=== PATIENT | male | born 2000 | race Caucasian/White ===

== ENCOUNTER 2022-04-02 04:08 | Outpatient (CLI) | payer OTHER, SELFPAY ==
[2022-04-02 16:12] LABS: Anion Gap 9.1 mmol/L (3-11); BUN 10 mg/dL (7-18); CO2 28.9 mmol/L (21.0-32.0); CREATININE 0.9 mg/dL (0.70-1.30); Calcium 9.5 mg/dL (8.5-10.1); Calculated LDL 148 mg/dL (<100); Chloride 101 mmol/L (98-107); Cholesterol 215 mg/dL (<200); Glucose 81 mg/dL (74-106); HDL Cholesterol 43 mg/dL (40-60); Potassium 3.7 mmol/L (3.5-5.1); Sodium 139 mmol/L (136-145); Triglyceride 124 mg/dL (<150)
[2022-04-02 16:37] LABS: Hemoglobin A1C 5.5 % (<5.7)
== END 2022-04-02 04:09 | disposition home or self-care (01) ==
PROVIDERS: PCP Nurse Practitioner Family; Visit Provider Nurse Practitioner Family
DX: I10 Essential (primary) hypertension (principal); E78.00 Pure hypercholesterolemia, unspecified; E66.01 Morbid (severe) obesity due to excess calories; Z68.54 Body mass index [BMI] pediatric, 95th percentile for age to less than 120% of the 95th percentile for age; Z13.1 Encounter for screening for diabetes mellitus
CPT/HCPCS: 80048; 80061; 83036

== ENCOUNTER 2022-07-24 02:20 | Outpatient (CLI) | payer OTHER, SELFPAY ==
--- NOTE | 2022-07-30 11:45 | PDOC.EEG ---
Neurology EEG EEG: [facility] Department of Neurology LONG-TERM AMBULATORY EEG REPORT Date of Recordin07/24/22 at 10:32:21 to 07/25/22 at 11:12:22 Interpreting Physician: Dr. Nichole Blackwell PCP/Referring Provider: Curtis Cates NP Reason for study: Raheem is a 22 year-old with stereotypical spells of left arm shaking and jerking. Current Medications: Home Medications Medication Instructions Recorded Confirmed Type Unknown [No Known Home Meds] 04/01/22 07/22/22 History METHODS: An 18-channel digitized electroencephalogram was recorded in the ambulatory setting with video. The 10/20 international system of electrode placement was used and bipolar and referential electrode montages were recorded. In addition to EEG the patient was monitored for EKG and by video. Activation procedures of photic stimulation and hyperventilation were performed if applicable. The duration of the recording was ~25 hours. DESCRIPTION OF EEG: Waking background activity: During maximal wakefulness a 9-Hz posterior background rhythm was present which was well-modulated, symmetrical, reactive to eye opening, and of moderate voltage. Faster frequencies were present in the bilateral anterior head regions. There was a normal anterior-posterior voltage gradient. Drowsy and sleeping background activity: During drowsiness, there was attenuation of the posterior dominant background rhythm and vertex waves. Normal stage II and III sleep was present with symmetrical sleep spindles, K-complexes, and vertex waves with slowing of the background rhythm to delta/theta frequencies. REM sleep manifested by rapid lateral eye movements and faster background rhythms was recorded. Arousal was unremarkable. Interictal abnormalities: none. Ictal findings: Event #1 on 07/25/22 at 13:45:32 -Clinical manifestations: Involuntary L arm movements x 30 seconds while waking -EEG findings: No abnormal or epileptiform activity. Event #2 on 07/25/22 at 13:59:03 -Clinical manifestations: Involuntary L arm movements x 5 seconds while waking -EEG findings: No abnormal or epileptiform activity. Activating Procedures: Photic stimulation was performed which produced no posterior driving response. Hyperventilation was performed with moderate effort and produced no physiological slowing of the background. EKG: EKG revealed normal sinus rhythm. INTERPRETATION: This long-term EEG is normal during the awake and sleep states as well as during the activation procedures. Two events captured with no associated EEG changes. PRIOR EEG: none CLINICAL CORRELATION: No focal regions of cerebral dysfunction or epileptiform activity was present. Two events captured with no associated EEG changes. Epilepsy remains a clinical diagnosis and a normal EEG does not rule out epilepsy. Clinical correlation is advised. Nichole Blackwell MD
== END 2022-07-24 02:21 | disposition home or self-care (01) ==
LOC: RT 02:20
PROVIDERS: PCP Nurse Practitioner Family; Visit Provider Psychiatry & Neurology Neurology
DX: R41.840 Attention and concentration deficit (principal); R56.9 Unspecified convulsions
CPT/HCPCS: 95714

== ENCOUNTER → 2022-08-19 01:28 | Outpatient (CLI) | payer OTHER, SELFPAY ==
--- NOTE | 2022-08-19 07:45 | DI.MRI_ITS ---
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 COMPARISON: No exams were available for comparison FINDINGS: The examination is limited due to patient motion artifact. VENTRICLES AND EXTRA AXIAL SPACES: Normal in size and morphology for the patient's age. MIDLINE SHIFT: None. CEREBRAL PARENCHYMA: No focus of restricted diffusion to suggest acute infarct. No space-occupying le navdeep identified. HEMORRHAGE: None. BRAINSTEM/CEREBELLUM: Normal. CALVARIUM: Normal. VISUALIZED PARANASAL SINUSES/MASTOIDS:Clear. NEZ PERCE OF MANJARREZ: Normal flow void. PITUITARY GLAND: Unremarkable. OTHER FINDINGS: None. IMPRESSION: Unremarkable MRI of the brain. DATA REPOSITORY:
== END ==
PROVIDERS: PCP Nurse Practitioner Family; Visit Provider Psychiatry & Neurology Neurology
DX: R40.4 Transient alteration of awareness (principal); G25.3 Myoclonus
CPT/HCPCS: 70551

== ENCOUNTER 2023-04-08 02:55 | Outpatient (CLI) | payer OTHER, SELFPAY ==
[2023-04-08 11:33] LABS: Hemoglobin A1C 5.3 % (<5.7)
[2023-04-08 11:42] LABS: Calculated LDL 123 mg/dL (<100); Cholesterol 201 mg/dL (<200); HDL Cholesterol 38 mg/dL (40-60); TSH (W/Ref FT4) 1.16 uIU/mL (0.36-3.74); Triglyceride 200 mg/dL (<150)
== END 2023-04-08 02:56 | disposition home or self-care (01) ==
PROVIDERS: PCP Nurse Practitioner Family; Visit Provider Nurse Practitioner Family
DX: E78.00 Pure hypercholesterolemia, unspecified (principal); E66.01 Morbid (severe) obesity due to excess calories; Z68.42 Body mass index [BMI] 45.0-49.9, adult
CPT/HCPCS: 36415; 80061; 83036; 84443

== ENCOUNTER 2024-04-21 01:55 | Outpatient (CLI) | payer OTHER, SELFPAY ==
--- OUTSIDE RECORDS SUMMARY | 2024-04-21 02:17 | XMS_ITS | Encounter Summary ---
Author Organization Formerly [facility] [place] [address] Care Team Providers Care Sharepoint Manager Name Role Phone Unknown Primary Care Provider Unavailabl e Encounter Details Date Type Department Care Team (Late st Contact Info) Description 08/19/2022 Ancillary Procedure [place] [id number] Curtis Harrington APRN [address] [place] [address] Social History Tobacco Use Types Packs/Day Years Used Date Smoking Tobacco: Never Smokeless Tobacco: Never Comments:Mom smokes inside. Sex and Gender Information Value Date Recorded Sex Assigned at Not on file Gender Identity Not on file Sexual Orientation Not on file documented as of this encounter Plan of Treatment Upcoming Encounters Date Type Department Care Team (Late st Contact Info) Description 07/12/2024 8:00 AM EDT [place] [address] Stacey Mendez [place]N [facility] [place] [address] 08/10/2024 9:00 AM EST TH Visit (TeleHealth) [place] [address] Stacey Mendez, [facility] [place] [address] 08/30/2024 9:00 AM EST TH Visit (TeleHealth) Neurology at [place] [phone] Stacey Mendez, [facility] [place] [address] 10/05/2024 9:00 AM EST TH Visit (TeleHealth) Neurology at [place] [phone] Stacey Mendez, [facility] [place] [address] 11/02/2024 2:30 PM EST TH Visit (TeleHealth) [place] [address] Stacey Mendez, [facility] [place] [address] 11/30/2024 3:00 PM EST TH Visit (TeleHealth) [place] [address] Stacey Mendez, [facility] [place] [address] 01/24/2025 8:00 AM EDT TH Visit (TeleHealth) [place] [address] Stacey Mendez [facility] [place] [address] 02/14/2025 8:00 AM EDT TH Visit (TeleHealth) [place] [address] Stacey Mendez, [facility] [place] [address] 03/15/2025 4:00 PM EDT TH Visit (TeleHealth) Neurology at [facility] [place] [address] Stacey Mendez, [facility] [place] [address] documented as of this encounter Procedures Procedure Name Priority Date/Time Associated Diagnosis Comments FILM LIBRARY STORAGE ONLY MR HEAD Routine 08/19/2022 12:00 AM EST documented in this encounter Results * Film Library- Storage Only MR Head (08/19/2022 12:00 AM EST) Narrative [facility] - 10/14/2022 4:58 PM EST This exam is auto-finalizing. It's purpose is for storage only. Curtis Harrington APRN IMG FILM LIBRARY O RDERABLES [place], [place] documented in this encounter Visit Diagnoses Not on filedocumented in this encounter Care Teams Sharepoint Manager Relationship Specialty Start Date End Date Unknown None PCP - General 02/10/22 10/15/22 documented as of this encounter
--- OUTSIDE RECORDS SUMMARY | 2024-04-21 02:17 | XMS_ITS | Encounter Summary ---
Author Organization [facility] [place] [address] Care Team Providers Care Brilliandeer Lopper Name Role Phone Curtis Harrington APRN Primary Care Provider +1- [phone] Encounter Details Date Type Department Care Team (Latest Contact Info) Description 12/16/2023 Travel Social History Tobacco Use Types Packs/Day Years [...] 8:00 AM EDT Office [place] [address] Stacey Mendez [employer] CONSULTANT [facility] [place] [address] 08/10/2024 9:00 AM EST TH Visit (TeleHealth) [place] [address] Stacey Mendez [employer]ANT [facility] [place] [address] 08/30/2024 9:00 AM EST TH Visit (TeleHealth) [place] [address] Stacey Mendez, [facility] [place] [address] 10/05/2024 9:00 AM EST TH Visit (TeleHealth) Neurology at [facility], [facility] Stacey Mendez, [facility] [place] [address] 11/02/2024 2:30 PM EST TH Visit (TeleHealth) Neurology at [place] [phone] Stacey Mendez, [facility] [place] [address] 11/30/2024 3:00 PM EST TH Visit (TeleHealth) [facility] [place] [address] Stacey Mendez, [facility] [place] [address] 01/24/2025 8:00 AM EDT TH Visit (TeleHealth) Neurology at [place] [phone] Stacey Mendez, [facility] [place] [address] 02/14/2025 8:00 AM EDT TH Visit (TeleHealth) [place] [address] Stacey Mendez [facility] [place] [address] 03/15/2025 4:00 PM EDT TH Visit (TeleHealth) Neurology at [facility] [place] [address] Stacey Mendez APRN [facility] [place] [address] documented as of this encounter Visit Diagnoses Not on filedocumented in this encounter Care Teams Brilliandeer Lopper Relationship Specialty Start Date End Date Curtis Harrington APRN [address] [place] [address] [address] [place] [address] PCP - General Family Medicine 10/16/22 documented as of this encounter
--- OUTSIDE RECORDS SUMMARY | 2024-04-21 02:17 | XMS_ITS | Encounter Summary ---
Author Organization [facility] Address [facility] [place] [address] Care Team Providers Care Customer Experience Leader Name Role Phone Mathew Quigley MD Primary Care Provider Reason for Visit * Reason Comments Skin Check * Consultation (Routine) - Closed Specialty Diagnoses / Procedures Referred By Yamilet greenwood Referred To Contact Dermatology Diagnoses Acanthosis nigricans Mathew Quigley MD [address] [place] [id number] Janine Zhang MD [facility] [address] [address] Referral ID Status Reason Start Date Expiration Date V isits Requested Visits Authorized [id number] Closed Consult, Test & Treat Connection Center 08/23/2017 08/23/2018 1 1 Encounter Details Date Type Department Care Team (Late st Contact Info) Description 10/28/2017 4:00 PM EST Office Visit Dermatology at [facility] [address] [place] [address] Yudith Stewart MD [facility] [address] [address] Acanthosis nigricans Social History Tobacco Use Types Packs/Day Years Used Date Smoking Tobacco: Passive Smo ke Exposure - Never Smoker Comments:Mom smokes inside. Sex and Gender Information Value Date Recorded Sex Assigned at Not on file Gender Identity Not on file Sexual Orientation Not on file documented as of this encounter Progress Notes * Yudith Stewart MD - 10/28/2017 4:00 PM EST DERMATOLOGY CONSULT CLINIC NOTE Date of service: 10/28/2017 Adis Escobedo : 2000 Provider: Yudith Stewart MD PROBLEM: dark patches of skin. HPI Mr. Escobedo is a 17 y.o. year old male, here with his mother, Stacey. New patient; referred by Mathew Quigley MD. Here today for dark patches on his neck, underarms, elbows and knees that he has had for about 5 years. He has applied lotion, washed with skin so soft, and scrubs nightly. His mom reports he has scrubbed until his skin is raw. He reports that when he sweats some of the color comes off and mom reports it sometimes bleaches his underwear. SKIN HX: Acanthosis nigricans MEDICAL HISTORY Denies h/o diabetes FAMILY HISTORY Paternal grandmother, uncle - diabetes ADR: Review of patient's allergies indicates no known allergies. MEDS: Current Outpatient Prescriptions on File Prior to Visit Medication Sig Dispense Refill ??? omeprazole (PRILOSEC) 20 mg capsule Take 20 mg by mouth daily. ??? loratadine (ALAVERT) 10 mg dissolvable tablet 10 MG = 1 Tablet(s), PO, Once daily ??? fluticasone (FLOVENT HFA) 110 mcg/Actuation inhaler 1 Puff(s), Inh, Twice daily ??? Levalbuterol Tartrate (XOPENEX HFA) 45 mcg/Actuation inhaler 1-2 puffs, Inh, Q4-6H PRN No current facility-administered medications on file prior to visit. ROS General: feeling well Skin: denies other skin complaints EXAM General: NAD, pleasant, cooperative Skin: A total body skin exam except for areas covered by underwear was performed. This includes examination of the skin of the face, ears, neck, chest, axillae, left and right upper and lower extremities, hands and feet, abdomen, and except the areas covered by underwear were not examined. Significant skin findings: A. Brown thick velvety plaques on neck, bilateral axillae, antecubital fossae, inguinal folds, popliteal fossae. ASSESSMENT/PLAN: A. Acanthosis Nigricans -Patient states recent workup for diabetes was negative. -No other family members with similar eruption. -Discussed etiology. -Recommended OTC AmLactin lotion - apply topically to affected areas every other day alternating with Tretinoin. -Rx: Tretinoin 0.05 cream - apply topically to affected areas every other day alternating with AmLactin. RTC 6-8 week acanthosis nigricans follow up. Appointment made upon exiting. I am documenting this encounter acting as the scribe for and in the presence of Dr. [place]. LIAN LEBLANC LPN I performed the above scribed service and agree with the accuracy of the documentation in this encounter. Yudith Stewart MD Section of Dermatology [facility] documented in this encounter Plan of Treatment Upcoming Encounters Date Type Department Care Team (Late st Contact Info) Description 07/12/2024 8:00 AM EDT [place] [address] Stacey Mendez [facility] [place] [address] 08/10/2024 9:00 AM EST TH Visit (TeleHealth) [place] [address] Stacey Mendez LEAF SUCKER OPERATOR [facility] [place] [address] 08/30/2024 9:00 AM EST TH Visit (TeleHealth) [place] [address] Stacey Mendez LEAF SUCKER OPERATOR [facility] [place] [address] 10/05/2024 9:00 AM EST TH Visit (TeleHealth) [place] [address] Stacey Mendez, [facility] [place] [address] 11/02/2024 2:30 PM EST TH Visit (TeleHealth) Neurology [place] [address] Stacey Mendez, [facility] [place] [address] 11/30/2024 3:00 PM EST TH Visit (TeleHealth) [place] [address] Stacey Mendez, [facility] [place] [address] 01/24/2025 8:00 AM EDT TH Visit (TeleHealth) [place] [address] Stacey Mendez, [facility] [place] [address] 02/14/2025 8:00 AM EDT TH Visit (TeleHealth) [place] [address] Stacey Mendez [facility] [place] [address] 03/15/2025 4:00 PM EDT TH Visit (TeleHealth) [place] [address] Stacey Mendez, [facility] [place] [address] documented as of this encounter Visit Diagnoses Diagnosis Acanthosis nigricans Acquired acanthosis nigricans documented in this encounter Care Teams Customer Experience Leader Relationship Specialty Start Date End Date Mathew Quigley MD [address] [place] [address] PCP - General 08/19/10 02/09/22 documented as of this encounter
--- OUTSIDE RECORDS SUMMARY | 2024-04-21 02:17 | XMS_ITS | Encounter Summary ---
Author Organization Formerly [facility] [place] [address] Care Team Providers Care Slot Editor Name Role Phone Curtis Harrington APRN Primary Care Provider +1- [phone] Encounter Details Date Type Department Care Team (Latest Contact Info) Description 01/14/2023 Travel Social History Tobacco Use Types Packs/Day [...] 8:00 AM EDT [place] [address] Stacey Mendez [employer]OR [facility] [place] [address] 08/10/2024 9:00 AM EST TH Visit (TeleHealth) [place] [address] Stacey Mendez INSPECT[employer]LOOR [facility] [place] [address] 08/30/2024 9:00 AM EST TH Visit (TeleHealth) [place] [address] Stacey Mendez, [facility] [place] [address] 10/05/2024 9:00 AM EST TH Visit (TeleHealth) Neurology at [facility], [facility] Stacey Mendez, [facility] [address] 11/02/2024 2:30 PM EST TH Visit (TeleHealth) Neurology at [place] [phone] Stacey Mendez, [facility] [place] [address] 11/30/2024 3:00 PM EST TH Visit (TeleHealth) [place]rology [place] [address] Stacey Mendez, [facility] [place] [address] 01/24/2025 8:00 AM EDT TH Visit (TeleHealth) Neurology at [place] [phone] Stacey Mendez, [facility] [place] [address] 02/14/2025 8:00 AM EDT TH Visit (TeleHealth) [place] [address] Stacey Mendez [facility] [place] [address] 03/15/2025 4:00 PM EDT TH Visit (TeleHealth) Neurology at [facility] [place] [address] Stacey Mendez APRN [facility] [place] [address] documented as of this encounter Visit Diagnoses Not on filedocumented in this encounter Care Teams Slot Editor Relationship Specialty Start Date End Date Curtis Harrington APRN [address] [place] [address] [address] [place] [address] PCP - General Family Medicine 10/16/22 documented as of this encounter
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
--- OUTSIDE RECORDS SUMMARY | 2024-04-21 02:17 | XMS_ITS | Encounter Summary ---
Author Organization [facility] Address [facility] [place] [address] Care Team Providers Care Lead Php Developer Name Role Phone LenCurtis MÓNICA Primary Care Provider +1- [phone] Encounter Details Date Type Department Care Team (Late st Contact Info) Description 04/17/2024 2:30 PM EDT TH Visit (TeleHealth) [place] [address] Gold Bowden MD [facility] [place] [address] Seizures Social History Tobacco Use Types Packs/Day Years Used Date Smoking Tobacco: Never Smokeless Tobacco: Never Comments:Mom quit Sex and Gender Information Value Date Recorded Sex Assigned at Not on file Gender Identity Not on file Sexual Orientation Not on file documented as of this encounter Progress Notes * Gold Bowden MD - 04/17/2024 2:30 PM EDT Images from the original note were not included. [facility] COMPREHENSIVE EPILEPSY PROGRAM CLINIC NOTE - FOLLOW-UP TELEHEALTH VISIT The patient gave permission for and was seen for today's appointment with a tele-health visit due to concerns for COVID-19 crisis. During this visit he was located in his home. Total length of telehealth visit: 20 minutes DATE: 04/17/2024 CHIEF COMPLAINT: left hemibody jerking/movements, can be right as well. Referring physician: Curtis Harrington, MÓNICA [address] [place] [address] Primary physician: Curtis Harrington, MÓNICA [address] [place] [address] PRESENT ILLNESS: Adis Escobedo is a 23 y.o. right handed male who presents with a chief complaint of left side jerking/movements. Outside records were requested and were reviewed in detail. Interval history (04/17/24): He met with Ginna Mendez in February and plans to start the CBT program. He needs to call to schedule follow up with her. Seizures only occur for about one second in a day. They used to be much longer, closer to 20 seconds. It just happens randomly he thinks. Really cannot pinpoint any stressors right now. Feels he's in a very good place. He feels his anxiety is managed with the sertraline. Migraines are rare. He hasn't had a migraine in a while. Not working or volunteering. He's looking for a job, looking for anything at this time. Barriers are, they want an experienced worker. Interval history (12/16/23): Migraines are much better [...] History: Raheem has seen Dr. Blackwell in [facility] a couple times now and is seeking a second opinion here at [facility]. 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 No past surgical history on file. Current Medications listed in chart: Medications 03/24/24 0908 Medication Sig Taking? sertraline (Zoloft) 25 mg tablet Take 1 tablet by mouth daily. metoprolol tartrate (Lopressor) 50 mg tablet Take 1 tablet by mouth 2 times daily. loratadine (ALAVERT) 10 mg dissolvable tablet Take by mouth as needed for Allergies. Allergies Allergen Reactions Adhesive Bandage Other reaction(s): [...] in the history of present illness. EXAMINATION: There were no vitals taken for this visit. Telehealth visit Assessment: Adis Escobedo is a 23 y.o. [...] in our FND clinic potentially for CBT whichhe is interested in. Update (04/17/24): Met with Ginna, no follows up set up yet, motivated to work on this. Will try to reach out and schedule. 2) For migraine, continue metoprolol 50mg (this [...] was scheduled for a return visit in [place] Epilepsy Classification: paroxysmal events (non-epileptic vs epileptic) Semiologic Seizure Classification: unclassified aura (headache) - > left vs bilateral extremity (face/arm/leg) tonic/jerky movements ILAE Seizure Classification: Unclassified Etiology: Unknown Seizure frequency: a couple times per week. Lasting 1 second. Related Condition: traumatic brain injury (TBI) Risks, [...] results to the patient/family/caregiver. Gold Bowden MD [facility] Epilepsy Program Department of Neurology documented in this encounter Plan of Treatment Upcoming Encounters Date Type Department Care Team (Late st Contact Info) Description 07/12/2024 8:00 AM EDT [place] [address] Stacey Mendez, [facility] [place] [address] 08/10/2024 9:00 AM EST TH Visit (TeleHealth) [place] [address] Stacey Mendez [facility] [place] [address] 08/30/2024 9:00 AM EST TH Visit (TeleHealth) [place] [address] Stacey Mendez [facility] [place] [address] 10/05/2024 9:00 AM EST TH Visit (TeleHealth) [place] [address] Stacey Mendez [facility] [place] [address] 11/02/2024 2:30 PM EST TH Visit (TeleHealth) [place] [address] Stacey Mendez [facility] [place] [address] 11/30/2024 3:00 PM EST TH Visit (TeleHealth) [place] [address] Stacey Mendez [facility] [place] [address] 01/24/2025 8:00 AM EDT TH Visit (TeleHealth) [place] [address] tSacey Mendez, WATER TREATMENT TECHNICIAN [facility] [place] [address] 02/14/2025 8:00 AM EDT TH Visit (TeleHealth) [place] [address] Stacey Mendez, WATER TREATMENT TECHNICIAN [facility] [place] [address] 03/15/2025 4:00 PM EDT TH Visit (TeleHealth) [place] [address] Stacey Mendez, [facility] [place] [address] documented as of this encounter Visit Diagnoses Diagnosis Seizures Other convulsions documented in this encounter Care Teams Lead Php Developer Relationship Specialty Start Date End Date Curtis Harrington APRN [address] [place] [address] PCP - General Family Medicine 10/16/22 documented as of this encounter
--- OUTSIDE RECORDS SUMMARY | 2024-04-21 02:17 | XMS_ITS | Encounter Summary ---
Author Organization [facility] [place] [address] Care Team Providers Care Electric Tape Slitter Name Role Phone Len Curtis Peralta APRN Primary Care Provider [phone]- [phone] Encounter Details Date Type Department Care Team (Late st Contact Info) Description 02/17/2023 [place] [address] Gold Bowden MD [facility] [place] [address] Migraine without aura and without status migrainosus, not intractable Social History Tobacco Use Types Packs/Day Years [...] 8:00 AM EDT Office [place] [address] Stacey Mendez [place]N [facility] [place] [address] 08/10/2024 9:00 AM EST TH Visit (TeleHealth) [place] [address] Stacey Mendez, [facility] [place] [address] 08/30/2024 9:00 AM EST TH Visit (TeleHealth) Neurology at [place] [id number] Stacey Mendez, [facility] [place] [address] 10/05/2024 9:00 AM EST TH Visit (TeleHealth) Neurology at [facility], [facility] Stacey Mendez, [facility] [place] [address] 11/02/2024 2:30 PM EST TH Visit (TeleHealth) [place] [address] Stacey Mendez, [facility] [place] [address] 11/30/2024 3:00 PM EST TH Visit (TeleHealth) [place] [address] Stacey Mendez, [facility] [place] [address] 01/24/2025 8:00 AM EDT TH Visit (TeleHealth) [place] [address] Stacey Mendez [facility] [place] [place] [address] 02/14/2025 8:00 AM EDT TH Visit (TeleHealth) [place] [address] Stacey Mendez, [facility] [place] [address] 03/15/2025 4:00 PM EDT TH Visit (TeleHealth) [place] [address] Stacey Mendez, [facility] [place] [address] documented as of this encounter Visit Diagnoses Diagnosis Migraine without aura and without status migrainosus, not intractable Migraine without aura, without mention of intractable migraine without mention of status migrainosus documented in this encounter Care Teams Electric Tape Slitter Relationship Specialty Start Date End Date Curtis Harrington APRN [address] [place] [address] PCP - General Family Medicine 10/16/22 documented as of this encounter
--- OUTSIDE RECORDS SUMMARY | 2024-04-21 02:17 | XMS_ITS | Encounter Summary ---
Author Organization [facility] Address [facility] [place] [address] Care Team Providers Care Courtesy Clerk Name Role Phone Mathew Quigley MD Primary Care Provider [phone] Encounter Details Date Type Department Care Team (Late st Contact Info) Description 12/20/2013 External Results Pediatrics at [address] [address] Haresh Concepcion MD [facility] [place] [address] Social History Tobacco Use Types Packs/Day Years [...] 8:00 AM EDT Office [place] [address] Stacey Mendez APRN [facility] [place] [address] 08/10/2024 9:00 AM EST TH Visit (TeleHealth) [place] [address] Stacey Mendez, [facility] [place] [address] 08/30/2024 9:00 AM EST TH Visit (TeleHealth) [place] [address] Stacey Mendez, [facility] [place] [address] 10/05/2024 9:00 AM EST TH Visit (TeleHealth) [place] [address] Stacey Mendez, [facility] [place] [address] 11/02/2024 2:30 PM EST TH Visit (TeleHealth) [place] [address] Stacey Mendez, [facility] [place] [address] 11/30/2024 3:00 PM EST TH Visit (TeleHealth) [place] [address] Stacey Mendez, [facility] [place] [address] 01/24/2025 8:00 AM EDT TH Visit (TeleHealth) [place] [address] Stacey Mendez, [facility] [place] [address] 02/14/2025 8:00 AM EDT TH Visit (TeleHealth) [place] [address] Stacey Mendez, MÓNICA [facility] [place] [address] 03/15/2025 4:00 PM EDT TH Visit (TeleHealth) Neurology at [facility] [place] [address] Stacey Mendez, M[facility] [place] [address] documented as of this encounter Procedures Procedure Name Priority Date/Time Associated Diagnosis Comments EXTERNAL LIPID LAB RESULTS PANEL Routine 10/16/2013 EXTERNAL LAB CBC CMP THYROID RESULTS PANEL Routine 10/16/2013 VITAMIN D, 25-HYDROXY Routine 10/16/2013 HEMOGLOBIN A1C Routine 10/16/2013 documented in this encounter Results * (ABNORMAL) VIT D Total Evaluation (10/16/2013) 25-OH Vit D Total 23.7(Exter nal Lab) Blood specimen (specimen) Historical Provider MD CHEMISTRY ORDERAB LES * (ABNORMAL) CBC / CMP / Thyroid External Results (10/16/2013) Sodium 142([facility]) 137 - 147 Potassium 4.6([facility]) 3.4 - 5.3 Chloride 106([facility]) 99 - 108 CO2 26(Externa l Lab) 20 - 28 BUN 10(Externa l Lab) Creatinine 0.7([facility]) Glucose Lvl 87(Externa l Lab) Calcium 9.5([facility]) 8.7 - 10.7 Total Protein 7.5([facility]) 6.4 - 8.2 Albumin 4.0([facility]) 3.5 - 5.0 Total Bilirubin 0.2([facility]) 0.1 - 1.4 Alk Phos 302([facility]) AST 22(Externa l Lab) 2 - 40 ALT 69(EXTERNA L/ABN) 3 - 30 TSH 1.47 Historical Provider POINT OF CARE EDE T ORDERABLES * (ABNORMAL) Lipid External Results (10/16/2013) Chol, Total 162([facility]) mg/dL HDL 41(Externa l Lab) md/dL LDL Cholesterol 103([facility]) mg/dL Triglycerides 109([facility]) mg/dL Historical Provider POINT OF CARE EDE T ORDERABLES * (ABNORMAL) Hemoglobin A1c (10/16/2013) Hemoglobin A1C 5.2([facility]) Blood specimen (specimen) Historical Provider CHEMISTRY ORDERAB LES documented in this encounter Visit Diagnoses Not on filedocumented in this encounter Care Teams Courtesy Clerk Relationship Specialty Start Date End Date Mathew Quigley MD [address] [place] [address] PCP - General 08/19/10 02/09/22 documented as of this encounter
--- OUTSIDE RECORDS SUMMARY | 2024-04-21 02:17 | XMS_ITS | Encounter Summary ---
Author Organization [facility] [place] [address] Care Team Providers Care Fast Food Assistant Restaurant Manager Name Role Phone Curtis Harrington APRN Primary Care Provider [phone]- [phone] Encounter Details Date Type Department Care Team (Latest Contact Info) Description 03/24/2024 Travel Social History Tobacco Use Types Packs/Day [...] 8:00 AM EDT [place] [address] Stacey [place] [address] 08/10/2024 9:00 AM EST TH Visit (TeleHealth) [place] [address] Stacey Mendez DERMATOLOGY NURSE PRACTITIONER [facility] [place] [address] 08/30/2024 9:00 AM EST TH Visit (TeleHealth) [place] [address] Stacey Mendez, [facility] [place] [address] 10/05/2024 9:00 AM EST TH Visit (TeleHealth) Neurology at [place] [address] Stacey Mendez, [place] [address] 11/02/2024 2:30 PM EST TH Visit (TeleHealth) Neurology at [facility], [facility] Stacey Mendez, [facility] [place] [address] 11/30/2024 3:00 PM EST TH Visit (TeleHealth) [place]rology [place] [address] Stacey Mendez, [facility] [place] [address] 01/24/2025 8:00 AM EDT TH Visit (TeleHealth) [place] [address] Stacey Mendez, [facility] [place] [address] 02/14/2025 8:00 AM EDT TH Visit (TeleHealth) [place]rology [place] [address] Stacey Mendez [place] [address] 03/15/2025 4:00 PM EDT TH Visit (TeleHealth) Neurology at [facility] [place] [place] [address] Stacey Mendez [place] [facility] [place] [address] documented as of this encounter Visit Diagnoses Not on filedocumented in this encounter Care Teams Fast Food Assistant Restaurant Manager Relationship Specialty Start Date End Date Curtis Harrington APRN [address] [place] [address] [address] [place] [address] PCP - General Family Medicine 10/16/22 documented as of this encounter
--- OUTSIDE RECORDS SUMMARY | 2024-04-21 02:17 | XMS_ITS | Encounter Summary ---
Author Organization [facility] Address [facility] [place] [address] Care Team Providers Care Technology Infusion Specialist Name Role Phone Crutis Harrington APRN Primary Care Provider [phone]- [phone] Reason for Visit * Consultation (Routine) - Closed Specialty Diagnoses / Procedures Referred By Yamilet greenwood Referred To Contact Neurology Diagnoses Nonspecific paroxysmal rosendall Nichole Blackwell MD [facility] [address] [place] [address] [facility] [address] [place] [address] Referral ID Status Reason Start Date Expiration Date V isits Requested Visits Authorized [id number] Closed Consult, Test & Treat PCP Updated and/or Approved 10/16/2022 10/16/2023 6 6 Encounter Details Date Type Department Care Team (Late st Contact Info) Description 06/17/2023 12:30 PM EDT Office [place] [address] Gold Bowden MD [facility] [place] [address] Migraine without aura and without status migrainosus, not intractable; Myoclonic jerking Social History Tobacco Use Types Packs/Day Years Used Date Smoking Tobacco: Never Smokeless Tobacco: Never Comments:Mom smokes inside. Sex and Gender Information Value Date Recorded Sex Assigned at Not on file Gender Identity Not on file Sexual Orientation Not on file documented as of this encounter Last Filed Vital Signs Vital Sign Reading Time Taken Comments Blood Pressure 120/73 06/17/2023 12:12 PM EDT Pulse 58 06/17/2023 12:12 PM EDT Temperature - - Respiratory Rate - - Oxygen Saturation 99% 06/17/2023 12: 12 PM EDT Inhaled Oxygen Concentration - - Weight 164.1 kg (361 lb 12.8 oz) 2022 12:12 PM EDT Height 186.7 cm (6' 1.5) 06/17/2023 12 :12 PM EDT Body Mass Index 47.09 06/17/2023 12:12 PM EDT documented in this encounter Progress Notes * Gold Bowden MD - 06/17/2023 12:30 PM EDT Images from the original note were not included. [facility] COMPREHENSIVE EPILEPSY PROGRAM CLINIC NOTE - INITIAL VISIT DATE: 06/17/2023 CHIEF COMPLAINT: left hemibody jerking/movements Referring physician: Curtis Harrington APRN [address] [place] [address] Primary physician: Curtis Harrington APRN [address] [place] [address] PRESENT ILLNESS: Adis Escobedo is a 23 y.o. right handed male who presents with a chief complaint of left side jerking/movements. Outside records were requested and were reviewed in detail. Interval history (06/17/23): At a [employer] at the end of April - dad [...] History: Raheem has seen Dr. Blackwell in [facility] a couple times now and is seeking a second opinion here at [facility]. Raheem and his mother report a 4-5 [...] 08/19/22 - Essentially normal with movement artifact. 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 No past surgical history on file. Current Medications listed in chart: Medications 06/17/23 1219 Medication Sig Taking? metoprolol tartrate (Lopressor) 50 mg tablet Take 50 mg by mouth 2 times daily. Yes urea (MACHO LO) 40 % Cream Apply topically to affected areas 2-3 x weekly. Patient not taking: Reported on 01/14/2023 tretinoin (RETIN-A) 0.05 % Cream Apply topically to affected areas every other night. Patient not taking: Reported on 01/11/2018 omeprazole (PRILOSEC) 20 mg capsule Take 20 mg by mouth daily. loratadine (ALAVERT) 10 mg dissolvable tablet 10 MG = 1 Tablet(s), PO, Once daily fluticasone (FLOVENT HFA) 110 mcg/Actuation inhaler Inhale [...] the history of present illness. EXAMINATION: BP 120/73 (BP Location (NBP): Right arm, Patient Position: Sitting, BP Cuff Sizes: Large Adult (32-43 cm)) Pulse 58 Ht 186.7 cm (6' 1.5) Wt (!) 164.1 kg (361 lb 12.8 oz) SpO2 99% BMI 47.09kg/m?? The patient is well appearing and in [...] sense. There was no dysmetria seen on [id number]. The gait was normal. Assessment: Adis Escobedo [...] triggered by stress/emotion and potentially other factors. 2) For migraine, we will start metoprolol 25mg twice a day. Please keep a headache/event diary for the next month. If you feel like it is helpful or not sure, we can increase to 50mg twice a day. Please watch out for breathing difficulties and dizziness/lightheadedness. 3) If events become more severe/frequent, we can pursue the video EEG admission here in the hospital to try to rule in or rule out seizures. The following tests were ordered: None Medication Regimen: Metoprolol 50mg BID, consider gabapentin if this is not working. Adis was scheduled for a return visit in 3 months. Epilepsy Classification: paroxysmal events (non-epileptic vs epileptic) Semiologic Seizure Classification: unclassified aura (headache) - > left vs bilateral extremity (face/arm/leg) tonic/jerky movements ILAE Seizure Classification: Unclassified Etiology: Unknown Seizure frequency: 5-6 per week Related Condition: traumatic brain injury (TBI) Risks, [...] results to the patient/family/caregiver. Gold Bowden MD [facility] Ep[facility]psy [facility] Department of Neurology documented in this encounter Plan of Treatment Upcoming Encounters Date Type Department Care Team (Late st Contact Info) Description 07/12/2024 8:00 AM EDT [place] [address] Stacey Mendez [facility] [place] [address] 08/10/2024 9:00 AM EST TH Visit (TeleHealth) [place] [address] Stacey Mendez MISSION SYSTEMS ENGINEER [facility] [place] [address] 08/30/2024 9:00 AM EST TH Visit (TeleHealth) [place] [address] Stacey Mendez MISSION SYSTEMS ENGINEER [facility] [place] [address] 10/05/2024 9:00 AM EST TH Visit (TeleHealth) [place] [address] Stacey Mendez, [facility] [place] [address] 11/02/2024 2:30 PM EST TH Visit (TeleHealth) Neurology at [facility] [address] Stacey Mendez, [facility] [place] [address] 11/30/2024 3:00 PM EST TH Visit (TeleHealth) Neurology at [facility] [place] [address] Stacey Mendez [facility] [place] [address] 01/24/2025 8:00 AM EDT TH Visit (TeleHealth) [place] [address] Stacey Mendez, [facility] [place] [address] 02/14/2025 8:00 AM EDT TH Visit (TeleHealth) [place] [address] Stacey Mendez [facility] [place] [address] 03/15/2025 4:00 PM EDT TH Visit (TeleHealth) [place] [address] Stacey Mendez, [facility] [place] [address] documented as of this encounter Visit Diagnoses Diagnosis Migraine without aura and without status migrainosus, not intractable Migraine without aura, without mention of intractable migraine without mention of status migrainosus Myoclonic jerking Myoclonus documented in this encounter Care Teams Technology Infusion Specialist Relationship Specialty Start Date End Date Curtis Harrington APRN [address] [place] [address] PCP - General Family Medicine 10/16/22 documented as of this encounter
--- OUTSIDE RECORDS SUMMARY | 2024-04-21 02:17 | XMS_ITS | Encounter Summary ---
[place] [address] Care Team Providers Care Aed Trainer Name Role Phone Curtis Harrington APRN Primary Care Provider [phone]- [phone] Reason for Referral * Consultation (Routine) - Closed Specialty Diagnoses / Procedures Referred By Yamilet t Referred To Contact Neurology Diagnoses Nonspecific paroxysmal spell Nichole Blackwell MD [facility] [address] [place] [address] [facility] [address] [place] [address] Referral ID Status Reason Start Date Expiration Date V isits Requested Visits Authorized [id number] Closed Consult, Test & Treat PCP Updated and/or Approved 10/16/2022 10/16/2023 6 6 Encounter Details Date Type Department Care Team (Late st Contact Info) Description 10/16/2022 Transcribe Orders eDH Incoming Referrals [phone] Nichole Blackwell MD [facility] [address] [place] [address] Nonspecific paroxysmal spell Social History Tobacco Use Types Packs/Day Years [...] 8:00 AM EDT [place] [address] Stacey Mendez, [facility] [place] [address] 08/10/2024 9:00 AM EST TH Visit (TeleHealth) [place] [address] Stacey Mendez, [facility] [place] [address] 08/30/2024 9:00 AM EST TH Visit (TeleHealth) [place] [address] Stacey Mendez, [facility] [place] [address] 10/05/2024 9:00 AM EST TH Visit (TeleHealth) [place] [address] Stacey Mendez, [place] [address] 11/02/2024 2:30 PM EST TH Visit (TeleHealth) [place] [address] Stacey Mendez [place] [address] 11/30/2024 3:00 PM EST TH Visit (TeleHealth) [place] [address] Stacey Mendez, [facility] [place] [address] 01/24/2025 8:00 AM EDT TH Visit (TeleHealth) [place] [address] Stacey Mendez, [facility] [place] [address] 02/14/2025 8:00 AM EDT TH Visit (TeleHealth) [place] [address] Stacey Mendez [place] [address] 03/15/2025 4:00 PM EDT TH Visit (TeleHealth) [place] [address] Stacey Mendez, [place] [address] Scheduled Referrals Name Type Priority Associated Diagnoses Orde r Schedule Referral to Neurology Outpatient Referral Routine Nonspecific Paroxysmal Spell Ordered: 10/16/2022 documented as of this encounter Visit Diagnoses Diagnosis Nonspecific paroxysmal spell documented in this encounter Care Teams Aed Trainer Relationship Specialty Start Date End Date Curtis Harrington, COST ACCOUNTING ANALYST [address] [place] [address] PCP - General Family Medicine 10/16/22 documented as of this encounter
--- OUTSIDE RECORDS SUMMARY | 2024-04-21 02:17 | XMS_ITS | Encounter Summary ---
Author Organization [facility] [place] [address] Care Team Providers Care Media Consultant Outside Sales Name Role Phone LenGinnaniru Peralta APRN Primary Care Provider [phone]- [phone] Reason for Visit * Reason Onset Date Comments Appointment 04/01/2023 Encounter Details Date Type Department Care Team (Late st Contact Info) Description 04/01/2023 Telephone [place] [address] Gold Bowden MD [facility] [place] [address] Appointment Social History Tobacco Use Types Packs/Day Years Used Date Smoking Tobacco: Never Smokeless Tobacco: Never Comments:Mom smokes inside. Sex and Gender Information Value Date Recorded Sex Assigned at Not on file Gender Identity Not on file Sexual Orientation Not on file documented as of this encounter Miscellaneous Notes * Telephone Encounter - Ritu Olson - 04/01/2023 12:20 PM EDT Reschedule past cancelled follow up appointment from 04/08/[address] Bowden to next available. Kindly warm transfer call to [facility] for sooner appts if needed. documented in this encounter Plan of Treatment Upcoming Encounters Date Type Department Care Team (Late st Contact Info) Description 07/12/2024 8:00 AM EDT [place] [address] Stacey Mendez, [place] [address] 08/10/2024 9:00 AM EST TH Visit (TeleHealth) [place] [address] Stacey Mendez [facility] [place] [address] 08/30/2024 9:00 AM EST TH Visit (TeleHealth) [place] [address] Stacey Mendez [facility] [place] [address] 10/05/2024 9:00 AM EST TH Visit (TeleHealth) [place] [address] Stacey Mendez [facility] [place] [address] 11/02/2024 2:30 PM EST TH Visit (TeleHealth) [place] [address] Stacey Mendez [facility] [place] [address] 11/30/2024 3:00 PM EST TH Visit (TeleHealth) [place] [address] Stacey Mendez, [facility] [place] [address] 01/24/2025 8:00 AM EDT TH Visit (TeleHealth) [place] [address] Stacey Mendez, [facility] [place] [address] 02/14/2025 8:00 AM EDT TH Visit (TeleHealth) [place] [address] Stacey Mendez, [facility] [place] [address] 03/15/2025 4:00 PM EDT TH Visit (TeleHealth) [place] [address] Stacey Mendez, [facility] [place] [address] documented as of this encounter Visit Diagnoses Not on filedocumented in this encounter Care Teams Media Consultant Outside Sales Relationship Specialty Start Date End Date Curtis Harrington APRN [address] [place] [address] PCP - General Family Medicine 10/16/22 documented as of this encounter
--- OUTSIDE RECORDS SUMMARY | 2024-04-21 02:17 | XMS_ITS | Encounter Summary ---
Author Organization [facility] Address [facility] [place] [address] Care Team Providers Care Furniture Mechanic Name Role Phone Len Curtis Peralta APRN Primary Care Provider [phone] Reason for Visit * Reason Onset Date Comments Appointment 06/14/2023 Encounter Details Date Type Department Care Team (Late st Contact Info) Description 06/14/2023 [place]phone [place] [address] Gold Bowden MD [facility] [place] [address] Appointment Social History Tobacco Use Types Packs/Day Years Used Date Smoking Tobacco: Never Smokeless Tobacco: Never Comments:Mom smokes inside. Sex and Gender Information Value Date Recorded Sex Assigned at Not on file Gender Identity Not on file Sexual Orientation Not on file documented as of this encounter Miscellaneous Notes * Telephone Encounter - Coral Kumar - 06/14/2023 3:13 PM EDT Patient is calling back and states that this is the second time the office has cancelled his appointment and he can not have the 06/17/23 cancelled as he needs to speak with the provider as soon as possible. Patient states that if the office cancels his appointment then he needs a call from the provider directly to speak to him. Please call to advise. * Telephone Encounter - Ritu Olson - 06/14/2023 2:32 PM EDT Reschedule cancelled 06/17/[address] Bowden to next available. documented in this encounter Plan of Treatment Upcoming Encounters Date Type Department Care Team (Late st Contact Info) Description 07/12/2024 8:00 AM EDT Office [place] [address] Stacey Mendez, [facility] [place] [address] 08/10/2024 9:00 AM EST TH Visit (TeleHealth) [place] [address] Stacey Mendez [facility] [place] [address] 08/30/2024 9:00 AM EST TH Visit (TeleHealth) [place] [address] Stacey Mendez [facility] [place] [address] 10/05/2024 9:00 AM EST TH Visit (TeleHealth) [place] [address] Stacey Mendez [facility] [place] [address] 11/02/2024 2:30 PM EST TH Visit (TeleHealth) [place] [address] Stacey Mendez, [facility] [place] [address] 11/30/2024 3:00 PM EST TH Visit (TeleHealth) [place] [address] Stacey Mendez [facility] [place] [address] 01/24/2025 8:00 AM EDT TH Visit (TeleHealth) [place] [address] Stacey Mendez [facility] [place] [address] 02/14/2025 8:00 AM EDT TH Visit (TeleHealth) [place] [address] Stacey Mendez [facility] [place] [address] 03/15/2025 4:00 PM EDT TH Visit (TeleHealth) [place] [address] Stacey Mendez [facility] [place] [address] documented as of this encounter Visit Diagnoses Not on filedocumented in this encounter Care Teams Furniture Mechanic Relationship Specialty Start Date End Date Curtis Harrington APRN [address] [place] [address] [address] [place] [address] PCP - General Family Medicine 10/16/22 documented as of this encounter
--- OUTSIDE RECORDS SUMMARY | 2024-04-21 02:17 | XMS_ITS | Encounter Summary ---
Author Organization [facility] [place] [address] Care Team Providers Care Student Services Director Name Role Phone Mathew Quigley MD Primary Care Provider [phone] Reason for Visit * Reason Onset Date Comments Medication Refill 01/13/2018 Encounter Details Date Type Department Care Team (Late st Contact Info) Description 01/13/2018 Refill Dermatology at [place] [address] [place] [address] Yudith Stewart MD [facility] DR [facility]E[place] [address] Acanthosis nigricans Social History Tobacco Use Types [...] 8:00 AM EDT Office Visit Neurology at [facility] [place] [address] Stacey Mendez APRN [facility] [place] [address] 08/10/2024 9:00 AM EST TH Visit (TeleHealth) [place] [address] Stacey Mendez, [facility] [place] [address] 08/30/2024 9:00 AM EST TH Visit (TeleHealth) [place] [address] Stacey Mendez, [facility] [place] [address] 10/05/2024 9:00 AM EST TH Visit (TeleHealth) Neurology at [facility] [place] [address] Stacey Mendez, [facility] [place] [address] 11/02/2024 2:30 PM EST TH Visit (TeleHealth) [place] [address] Stacey Mendez, [facility] [place] [address] 11/30/2024 3:00 PM EST TH Visit (TeleHealth) [place] [address] Stacey Mendez, [facility] [place] [address] 01/24/2025 8:00 AM EDT TH Visit (TeleHealth) Neurology at [facility] [place] [address] Stacey Mendez, [facility] [place] [address] 02/14/2025 8:00 AM EDT TH Visit (TeleHealth) [place] [address] Stacey Mendez, [facility] [place] [address] 03/15/2025 4:00 PM EDT TH Visit (TeleHealth) [place] [address] Stacey Mendez, [facility] [place] [address] documented as of this encounter Visit Diagnoses Diagnosis Acanthosis nigricans Acquired acanthosis nigricans documented in this encounter Care Teams Student Services Director Relationship Specialty Start Date End Date Mathew Quigley MD [address] [place] [address] PCP - General 08/19/10 02/09/22 documented as of this encounter
--- OUTSIDE RECORDS SUMMARY | 2024-04-21 02:17 | XMS_ITS | Clinical Summary ---
Author Organization [facility] Address [facility] [place] [address] Care Team Providers Care Cad Librarian Name Role Phone Curtis Harrington APRN Primary Care Provider [phone] Allergies Active Allergy Reactions Criticality Noted Date Comments Adhesive Bandage 10/14/2022 Other reaction(s): Skin Rash Adhesive Tape 10/14/2022 Other reaction(s): Skin Rash Cephalexin 01/11/2018 Irritable Medications Medication Sig Dispensed Refills Start Date End Date Status loratadine (ALAVERT) 10 mg dissolvable tablet Take by mouth as needed for Allergies. 07/28/2010 Active metoprolol tartrate (Lopressor) 50 mg tabletIndications:Jeff clonic jerking Take 1 tablet by mouth 2 times daily. 180 tablet 3 06/17/2023 Active sertraline (Zoloft) 25 mg tabletIndications:Anx iety Take 1 tablet by mouth daily. 90 tablet 3 12/16/2023 Active Active Problems Problem Noted Date Diagnosed Date FHx: type 2 diabetes mellitus 10/12/2013 Esophageal reflux 10/12/2013 Overview (10/12/2013): On prilosec - hx heartburn, acid burbs Sleep apnea 10/12/2013 BMI (body mass index), pedia tric, greater than or equal to 95% for age 1208/30/2013 Overview (10/12/2013): Lab aug 2011 with NL fasting glucose, lipids, TSH per PCP note (not available at visit) - repeat ordered by PCP May 2013, not done by family Dietary counseling and surveillance 08/30/2013 Exercise counseling 08/30/2013 Acanthosis nigricans 08/30/2013 Encounter for allergy testing Overview (07/04/2011): SENSITIZATIONS: Cat 1+, dog 1+, grass equivocal, maple 1+, molds 1+ (06/2009). Previous SPIROMETRY: FEV1 1.23 L, 98% predicted; FVC 1.89 L, 97% predicted; ratio is 0.89 (06/2009). 11/2009 spirometry FEV1 of 1.99 L, 94% predicted; FVC 2.16 L, 89% predicted 07/28/10 spirometry: FEV1 1.92L, 100%; FVC 2.3L, 105%; ratio 0.83. Possible mild obstruction 03/25/2011 spirometry: FEV1 2.37L 115%; FVC 2.66L 113%; ratio 0.89. Normal Dx replacement utility run on deactivated IMO Dx [id number] Assessment & Plan (03/25/2011 4:31 PM EDT): 2 guinea pigs. No ETS Discussed washing hair at bedtime. Asthma Overview (12/02/2010): Symptoms consistent with moderate persistent asthma. 07/28/10: Coughing alot. Off Flovent x 2 weeks (refusing). Was using Flovent 1 puff in am before stopping. Recent PNA on CXR (5 days of abx). ACT = 21 (asthma good, a little problem but ok, 1-3 days of asthma sx, wheeze). Assessment & Plan (03/25/2011 4:30 PM EDT): 03/25/11: Used the flovent over the winter, went off in november, allergies started to bother him in December, and required restarting of flovent for a few days. Required albuterol inhaler once last month, on average 1-2x/month.No exercise intolerance, no wheezing, no coughing, asthma not seemingly triggered by URIs. 2 guinea pigs in home. No smokers at home. In January coughing w. Baseball. Apart from this no problems. No recent albuterol use (no albuterol use this month) Flovent 110 1p bid during winter, stopped in December. Rhinitis Overview (12/02/2010): Persistent rhinitis with an allergic component. Assessment & Plan (03/25/2011 4:31 PM EDT): Had seasonal rhinitis in , took Alavert PRN with good effect. No currently active issues. No recent problems Not using nasal spray Encounters Date Type Department Care Team Description 04/17/2024 2:30 PM EDT TH Visit (TeleHealth) [place] [address] Gold Bowden MD Seizures 03/24/2024 9:00 AM EDT [place] [address] Stacey Mendez APRN Functional neurological symptom disorder with attacks or seizures 03/24/2024 Travel from Last 3 Months Social History Tobacco Use Types Packs/Day Years Used Date Smoking Tobacco: Never Smokeless Tobacco: Never Tobacco Cessation:Counseling Given: Not Answered Comments:Mom quit Sex and Gender Information Value Date Recorded Sex Assigned at Not on file Gender Identity Not on file Sexual Orientation Not on file Last Filed Vital Signs Vital Sign Reading Time Taken Comments Blood Pressure 141/91 03/24/2024 9:03 AM EDT Pulse 62 03/24/2024 9:03 AM EDT Temperature - - Respiratory Rate 16 03/24/2024 9:03 AM EDT Oxygen Saturation 100% 03/24/2024 9:03 AM EDT Inhaled Oxygen Concentration - - Weight 166.8 kg (367 lb 12.8 oz) 03/24/2024 9:03 AM EDT Height 188 cm (6' 2) 03/24/2024 9:03 AM EDT Body Mass Index 47.22 03/24/2024 9:03 AM EDT Plan of Treatment Upcoming Encounters Date Type Department Care Team (Late st Contact Info) Description 07/12/2024 8:00 AM EDT [place] [address] Stacey Mendez, [facility] [place] [address] 08/10/2024 9:00 AM EST TH Visit (TeleHealth) Neurology at [place] [address] Stacey Mendez, [facility] [place] [address] 08/30/2024 9:00 AM EST TH Visit (TeleHealth) Neurology at [place] [address] Stacey Mendez, [facility] [place] [address] 10/05/2024 9:00 AM EST TH Visit (TeleHealth) [place] [address] Stacey Mendez, [facility] [place] [address] 11/02/2024 2:30 PM EST TH Visit (TeleHealth) [place] [address] Stacey Mendez, [facility] [place] [address] 11/30/2024 3:00 PM EST TH Visit (TeleHealth) [place] [address] Stacey Mendez, [facility] [place] [address] 01/24/2025 8:00 AM EDT TH Visit (TeleHealth) [place] [address] Stacey Mendez, [facility] [place] [address] 02/14/2025 8:00 AM EDT TH Visit (TeleHealth) [place] [address] Stacey Mendez, [facility] [place] [address] 03/15/2025 4:00 PM EDT TH Visit (TeleHealth) [place] [address] Stacey Mendez, [facility] [place] [address] Health Maintenance Due Date Last Done Comments Pneumococcal Vaccine: At-Risk 5-64yrs (1 of 2 - PCV) 0 2008 HPV vaccine (1 - Male 3-dose series) 2017 HIV screen 2020 Hepatitis C Screening 2020 Lipid Screening 2020 10/16/2013 Hepatitis B vaccine (0-59 yrs) (1) 2021 Tdap adult 2021 Tetanus vaccine 2021 Covid-19 Vaccine (1 - 2022-24 season) 2023 Influenza (Flu) vaccine (1 o f 1 - Influenza standard series) 05/28/2024 Procedures Procedure Name Priority Date/Time Associated Diagnosis Comments EXTERNAL LIPID LAB RESULTS PANEL Routine 10/16/2013 from Last 3 Months or Most Recently Relevant to Health Maintenance Results * (ABNORMAL) Lipid External Results (10/16/2013) Chol, Total 162(Machine Feed Operator al Lab) mg/dL HDL 41(Externa l Lab) md/dL LDL Cholesterol 103(EMBALMER ASSISTANT AL/ABN) mg/dL Triglycerides 109(Machine Feed Operator al Lab) mg/dL Historical Provider POINT OF CARE EDE T ORDERABLES from Last 3 Months or Most Recently Relevant to Health Maintenance Care Teams Cad Librarian Relationship Specialty Start Date End Date Curtis Harrington APRN [address] [place], [place] [address] PCP - General Family Medicine 10/16/22
--- OUTSIDE RECORDS SUMMARY | 2024-04-21 02:17 | XMS_ITS | Encounter Summary ---
Author Organization [facility] [place] [address] Care Team Providers Care Motor Vehicle Dispatcher Name Role Phone Curtis Harrington APRN Primary Care Provider [phone]- [phone] Reason for Visit * Consultation (Routine) - Closed Specialty Diagnoses / Procedures Referred By Yamilet greenwood Referred To Contact Neurology Diagnoses Anxiety Gold Bowden MD [facility] [place] [address] Stacey Mendez S[employer] [facility] [place] [id number] Referral ID Status Reason Start Date Expiration Date V isits Requested Visits Authorized [id number] Closed Consult, Test & Treat 12/16/2023 12/15/2024 1 1 Encounter Details Date Type Department Care Team (Late st Contact Info) Description 03/24/2024 9:00 AM EDT Office Visit Neurology at [facility] [place] [address] Stacey Mendez [employer] [facility] [place] [address] Functional neurological symptom disorder with attacks or seizures Social History Tobacco Use Types Packs/Day Years [...] Mass Index 47.22 03/24/2024 9:03 AM EDT documented in this encounter Progress Notes * Stacey Mendez, SAND WHEELER - 03/24/2024 9:00 AM EDT Images from the original note were not included. [facility] EPILEPSY/FND PROGRAM CLINIC NOTE - Follow up VISIT DATE: 03/24/2024 CHIEF COMPLAINT: left hemibody jerking/movements, can be right as well. Referring physician: Gold Bowden MD [facility] [place] [address] Primary physician: Curtis Harrington, MÓNICA [address] [facility] [address] [place] [address] PRESENT ILLNESS: Adis Escobedo is a 23 y.o. right handed male who presents with a chief complaint of left side jerking/movements. Per Dr. Bowden last clinic note: Seizure History: Raheem has seen Dr. Blackwell in [facility] a couple times now and is seeking a second opinion here at [facility]. Raheem and his mother report [...] has inhaler but does not use it. Interval history (12/16/23): Migraines are much better perhaps 1 a month or less with the metoprolol. He is still having her jerks/clenching/freezing without loss of awareness of either left or right extremity but only during times of stress/anxiety/anticipation. For example, he describes the last couple times this has happened. Last night he was working on fixing something and couldn't figure it out and had a brief jerk and was done. This morning he was stressed about coming to the doctor todayand it happened twice. He was holding the door to open it, father witnessed, he was just stuck for 20 seconds, but Raheem was able to understand and speak. Then it was over. Never happens more than 1-2times per day. Not every day. When he was in high school it didn't happened, this is only somethingthat started after the pandemic. Has not been working but is looking to start working. CURRENT ANTISEIZURE MEDICATIONS: None PRIOR ANTISEIZURE MEDICATION HISTORY: (And reason no longer on medications) Keppra 500mg BID. Semiology: Left side jerking/movements Paresthesia of L shoulder blade Triggers: stress/emotion Frequency: Variable, can be 1 a day Epilepsy Risk Factors: Complication of or early [...] tumor: No Stroke: No Prior neurosurgery: No PREVIOUS EVALUATIONS: MRI Brain: 08/19/22 - Essentially normal with movement artifact. [facility] 07/24-07/25/2022: Current Medications listed in chart: Medications 03/24/24 0908 Medication Sig Taking? sertraline (Zoloft) 25 mg tablet Take 1 tablet by mouth daily. Yes metoprolol tartrate (Lopressor) 50 mg tablet Take 1 tablet by mouth 2 times daily. Yes loratadine (ALAVERT) 10 mg dissolvable tablet Take by mouth as needed for Allergies. Yes Allergies Allergen Reactions Adhesive Bandage Other reaction(s): [...] of Life; 0-Worst Quality of Life) 5 EXAMINATION: Appears stated age, well groomed, WDWN, NAD. AAOx4, follows commands. Language: Fluent, no dysarthria or paraphasic errors. Tracks examiner around room. No facial asymmetry. Moving all extremities spontaneously and antigravity. No abnormal movements noted. Gait deferred. 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 The focus of today's appointment was to explain etiology, progression and treatment and resources today. 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 Pt was accepting of this diagnosis, all questions were answered and additional educational materials were provided. Can consider EMU admit in future if needed. Plan: - Follow via telehealth to start workbook - Start CBT - Start journaling and using mindfulness techniques - Send additional resources via [facility] - Keep log, including seizures, how they look, length, what you were doing at the time, any feelingbefore or after, triggers Risks, benefits, alternatives and side effects of the management were discussed in detail. Adis agreed to the plan. I spent 45 minutes in this visit, which included preparing to see the patient (e.g. review of tests), obtaining and/or reviewing separately obtained history, performing a medically appropriate examination and/or evaluation, counseling and educating the patient/family/caregiver, ordering medications, tests, or procedures, documenting clinical information in the electronic or other health record and independently interpreting results (not separately reported) and communicating results to the patient/family/caregiver. Stacey Mendez APRN [facility] Epilepsy Program Department of Neurology documented in this encounter Plan of Treatment Upcoming Encounters Date Type Department Care Team (Late st Contact Info) Description 07/12/2024 8:00 AM EDT Office [place] [address] Stacey Mendez, [facility] [place] [address] 08/10/2024 9:00 AM EST TH Visit (TeleHealth) [place] [address] Stacey Mendez [facility] [place] [address] 08/30/2024 9:00 AM EST TH Visit (TeleHealth) [place] [address] Stacey Mendez, [facility] [place] [address] 10/05/2024 9:00 AM EST TH Visit (TeleHealth) [place] [address] Stacey Mendez [employer] [facility] [place] [address] 11/02/2024 2:30 PM EST TH Visit (TeleHealth) [place] [address] Stacey Mendez [facility] [place] [address] 11/30/2024 3:00 PM EST TH Visit (TeleHealth) [place] [address] Stacey Mendez, [employer] [facility] [place] [address] 01/24/2025 8:00 AM EDT TH Visit (TeleHealth) [place] [address] Stacey Mendez [facility] [place] [address] 02/14/2025 8:00 AM EDT TH Visit (TeleHealth) [place] [address] tSacey Mendez [facility] [place] [address] 03/15/2025 4:00 PM EDT TH Visit (TeleHealth) [place] [address] Stacey Mendez [facility] [address] Scheduled Referrals Name Type Priority Associated Diagnoses Orde r Schedule Referral to Neurology Outpatient Referral Routine Anxiety Ordered: 12/16/2023 documented as of this encounter Visit Diagnoses Diagnosis Functional neurological symptom disorder with attacks or seizures documented in this encounter Care Teams Motor Vehicle Dispatcher Relationship Specialty Start Date End Date Curtis Harrington SAND WHEELER [address] [place] [address] PCP - General Family Medicine 10/16/22 documented as of this encounter
--- OUTSIDE RECORDS SUMMARY | 2024-04-21 02:17 | XMS_ITS | Encounter Summary ---
Author Organization [facility] Address [facility] [place] [address] Care Team Providers Care Jogger Operator Name Role Phone Curtis Harrington APRN Primary Care Provider [phone] Reason for Visit * Consultation (Routine) - Closed Specialty Diagnoses / Procedures Referred By Yamilet greenwood Referred To Contact Neurology Diagnoses Nonspecific paroxysmal rosendall Nichole Blackwell MD [facility] [address] [place] [address] [facility] [address] [place] [address] Referral ID Status Reason Start Date Expiration Date V isits Requested Visits Authorized [id number] Closed Consult, Test & Treat PCP Updated and/or Approved 10/16/2022 10/16/2023 6 6 Encounter Details Date Type Department Care Team (Late st Contact Info) Description 01/14/2023 8:00 AM EDT Office [place] [address] Gold Bowden MD [facility] [place] [address] Migraine without aura and without status migrainosus, [...] Sign Reading Time Taken Comments Blood Pressure 148/91 01/14/2023 7:55 AM EDT Pulse 87 01/14/2023 7:55 AM EDT Temperature - - Respiratory Rate - - Oxygen Saturation - - Inhaled Oxygen Concentration - - Weight 166 kg (366 lb) 01/14/2023 7:55 AM EDT Height 188 cm (6' 2) 01/14/2023 7:55 AM EDT rep orted Body Mass Index 46.99 01/14/2023 7:55 AM EDT documented in this encounter Patient Instructions * Patient Instructions* Gold Bowden MD - 01/14/2023 8:00 AM EDT 1) We discussed the differential of the [...] to rule in or rule out seizures. documented in this encounter Progress Notes * Gold Bowden MD - 01/14/2023 8:00 AM EDT Images from the original note were not included. [facility] COMPREHENSIVE EPILEPSY PROGRAM CLINIC NOTE - INITIAL VISIT DATE: 01/14/2023 CHIEF COMPLAINT: left hemibody jerking/movements Referring physician: Nichole Blackwell MD [facility] [address] [place] [address] Primary physician: Curtis Harrington, SEAMER OPERATOR [address] [place] [address] PRESENT ILLNESS: Adis Escobedo is a 22 y.o. right handed male who presents with a chief complaint of left side jerking/movements. Outside records were requested and were reviewed in detail. Seizure History: Raheem has seen Dr. Blackwell in [facility] a couple times now and is seeking a second opinion here at [facility]. Raheem and his mother report a 4-5 [...] 08/19/22 - Essentially normal with movement artifact. long-term 24 hour EEG 07/24-07/25/2022: Pertinent labs and AED levels: Lab Results Component Value Date OHVITD 23.7 (External Lab) 10/16/2013 No results found for: AMMONIA No past medical history on file. No past surgical history on file. Current Medications listed in chart: Medications 01/14/23 0753 Medication Sig Taking? loratadine (ALAVERT) 10 mg dissolvable tablet 10 MG = 1 Tablet(s), PO, Once daily Yes fluticasone (FLOVENT HFA) 110 mcg/Actuation inhaler Inhale into the lungs as needed. Yes urea (MACHO LO) 40 % Cream Apply topically to affected areas 2-3 x weekly. Patient not taking: Reported on 01/14/2023 tretinoin (RETIN-A) 0.05 % Cream Apply topically to affected areas every other night. Patient not taking: Reported on 01/11/2018 omeprazole (PRILOSEC) 20 mg capsule Take 20 mg by mouth daily. Levalbuterol Tartrate (XOPENEX HFA) 45 mcg/Actuation inhaler 1-2 puffs, Inh, Q4- 6H PRN Allergies Allergen Reactions ??? Adhesive Bandage Other reaction(s): Skin Rash ??? First Aid Plastic Tape [Adhesive Tape] Other reaction(s): Skin Rash ??? Keflex [Cephalexin] Irritable No family history on file. View : No data to display. 01/08/2023 7:19 PM QEPILEPSY SOCIAL FACTORS Employment [...] the history of present illness. EXAMINATION: BP (!) 148/91 (BP Location (NBP): Right arm, Patient Position: Sitting) Pulse 87 Ht 188 cm (6' 2) Comment: reported Wt (!) 166 kg (366 lb) BMI 46.99 kg/m?? The patient is well appearing and [...] sense. There was no dysmetria seen on [id number]. The gait was normal. Assessment: Adis Escobedo is a 22 y.o. right handed male whose presentation and [...] tests were ordered: None Medication Regimen: Metoprolol 25mg twice a day Adis was scheduled for a return visit [...] Adis agreed to the plan. I spent 60 minutes in this visit, which included preparing [...] results to the patient/family/caregiver. Gold Bowden MD [facility] Epilepsy Program Department of Neurology documented in this encounter Plan of Treatment Upcoming Encounters Date Type Department Care Team (Late st Contact Info) Description 07/12/2024 8:00 AM EDT Office [place] [address] Stacey Mendez [facility] [place] [address] 08/10/2024 9:00 AM EST TH Visit (TeleHealth) [place] [address] Stacey Mendez [facility] [place] [address] 08/30/2024 9:00 AM EST TH Visit (TeleHealth) [place] [address] Stacey Mendez [facility] [place] [address] 10/05/2024 9:00 AM EST TH Visit (TeleHealth) [place] [address] Stacey Mendez, [facility] [place] [address] 11/02/2024 2:30 PM EST TH Visit (TeleHealth) [place] [address] Stacey Mendez, [facility] [place] [address] 11/30/2024 3:00 PM EST TH Visit (TeleHealth) [place] [address] Stacey Mendez, [facility] [place] [address] 01/24/2025 8:00 AM EDT TH Visit (TeleHealth) [place] [address] Stacey Mendez, [facility] [place] [address] 02/14/2025 8:00 AM EDT TH Visit (TeleHealth) [place] [address] Stacey Mendez, [facility] [place] [address] 03/15/2025 4:00 PM EDT TH Visit (TeleHealth) [place] [address] Stacey Mendez, [facility] [place] [address] documented as of this encounter Visit Diagnoses Diagnosis Migraine without aura and without status migrainosus, not intractable Migraine without aura, without mention of intractable migraine without mention of status migrainosus documented in this encounter Care Teams Jogger Operator Relationship Specialty Start Date End Date Curtis Harrington, SEAMER OPERATOR [address] [place] [address] PCP - General Family Medicine 10/16/22 documented as of this encounter
--- OUTSIDE RECORDS SUMMARY | 2024-04-21 02:17 | XMS_ITS | Encounter Summary ---
Author Organization [facility] [place] [address] Care Team Providers Care Overedger Name Role Phone Curtis Harrington APRN Primary Care Provider [phone]- [phone] Encounter Details Date Type Department Care Team (Latest Contact Info) Description 01/08/2023 Travel Social History Tobacco Use Types Packs/Day [...] 8:00 AM EDT Office [place] [address] Stacey Mendez DIE KEEPER [facility] [place] [address] 08/10/2024 9:00 AM EST TH Visit (TeleHealth) [place] [address] Stacey Mendez DIE KEEPER [facility] [place] [address] 08/30/2024 9:00 AM EST TH Visit (TeleHealth) [place] [address] Stacey Mendez, [facility] [place] [address] 10/05/2024 9:00 AM EST TH Visit (TeleHealth) Neurology at [facility] Stacey Mendez, [facility] [place] [address] 11/02/2024 2:30 PM EST TH Visit (TeleHealth) Neurology at [place] [phone] Stacey Mendez, [facility] [place] [address] 11/30/2024 3:00 PM EST TH Visit (TeleHealth) [place]rology [place] [address] Stacey Mendez, [facility] [place] [address] 01/24/2025 8:00 AM EDT TH Visit (TeleHealth) Neurology at [place] [phone] Stacey Mendez, [facility] [place] [address] 02/14/2025 8:00 AM EDT TH Visit (TeleHealth) [place] [address] Stacey Mendez [facility] [place] [address] 03/15/2025 4:00 PM EDT TH Visit (TeleHealth) Neurology at [facility] [place] [address] Stacey Mendez APRN [facility] [place] [address] documented as of this encounter Visit Diagnoses Not on filedocumented in this encounter Care Teams Overedger Relationship Specialty Start Date End Date Curtis Harrington APRN [address] [place] [address] [address] [place] [address] PCP - General Family Medicine 10/16/22 documented as of this encounter
--- OUTSIDE RECORDS SUMMARY | 2024-04-21 02:17 | XMS_ITS | Encounter Summary ---
Author Organization [facility] [place] [address] Care Team Providers Care Emergency Medical Service Coordinator Name Role Phone Kraig Esteban MD Primary Care Provider [phone] Reason for Visit * Reason Onset Date Comments Referral 07/07/2013 Encounter Details Date Type Department Care Team (Late st Contact Info) Description 07/07/2013 Telephone Pediatrics at [address] [id number] Panda Mills MD [address] [place] [address] [place] [address] Referral Social History Tobacco Use Types Packs/Day Years Used Date Smoking Tobacco: Never Assessed Sex and Gender Information Value Date Recorded Sex Assigned at Not on file Gender Identity Not on file Sexual Orientation Not on file documented as of this encounter Miscellaneous Notes * Telephone Encounter - Haresh Concepcion MD - 07/14/2013 12:49 PM EDT [facility] Referral Note Name: Adis Escobedo MR: [id number] : 2000 Age: 13 y.o. 2 m.o. PCP:KRAIG ESTEBAN MD PLATE GLASS INSTALLER:Kraig Esteban MD Note to scheduling: DiIAGNOSIS / CONCERN: SCHEDULING: [ ] Hyperlipidemia without obesity: [ ] Khai [ ] Audra [ ] Either [ x ] Obesity with: [ ] Hofley [x ] Jamey [ ] Either [ ] Fatty Liver [ ] Insulin Resistance [x ] Acanthosis [ ] Hypertension [ ] Hyperlipidemia [ ] PCOS [ ] Other: Labs Growth chart [ ] scanned [x ] scanned [ ] eDH [ x ] eDH [x ] not available -obtaining [ ] not available * Telephone Encounter - Benjamin Lima - 07/07/2013 8:53 AM EDT Please review referral and let me know when ok to schedule. Called PCP office to see if fasting labs were done, but have not heard back yet. Will scan them as soon as they are faxed. documented in this encounter Plan of Treatment Upcoming Encounters Date Type Department Care Team (Late st Contact Info) Description 07/12/2024 8:00 AM EDT [place] [address] Stacey Mendez, [facility] [place] [address] 08/10/2024 9:00 AM EST TH Visit (TeleHealth) [place] [address] Stacey Mendez [facility] [place] [address] 08/30/2024 9:00 AM EST TH Visit (TeleHealth) [place] [address] Stacey Mendez [facility] [place] [address] 10/05/2024 9:00 AM EST TH Visit (TeleHealth) [place] [address] Stacey Mendez, [facility] [place] [address] 11/02/2024 2:30 PM EST TH Visit (TeleHealth) [place] [address] Stacey Mendez, [facility] [place] [address] 11/30/2024 3:00 PM EST TH Visit (TeleHealth) [place] [address] Stacey Mendez, [facility] [place] [address] 01/24/2025 8:00 AM EDT TH Visit (TeleHealth) [place] [address] Stacey Mendez, [facility] [place] [address] 02/14/2025 8:00 AM EDT TH Visit (TeleHealth) [place] [address] Stacey Mendez, [facility] [place] [place] [address] 03/15/2025 4:00 PM EDT TH Visit (TeleHealth) [place] [address] Stacey Mendez, [facility] [place] [address] documented as of this encounter Visit Diagnoses Not on filedocumented in this encounter Care Teams Emergency Medical Service Coordinator Relationship Specialty Start Date End Date Kraig Esteban MD [address] [place] [address] PCP - General 08/19/10 02/09/22 documented as of this encounter
--- OUTSIDE RECORDS SUMMARY | 2024-04-21 02:17 | XMS_ITS | Encounter Summary ---
Author Organization [facility] Address [facility] [place] [address] Care Team Providers Care Dust Brush Assembler Name Role Phone Len Curtis Peralta APRN Primary Care Provider [phone]- [phone] Reason for Visit * Reason Onset Date Comments Appointment 07/30/2023 Encounter Details Date Type Department Care Team (Late st Contact Info) Description 07/30/2023 [place] [address] Gold Bowden MD [facility] [place] [address] Appointment Social History Tobacco Use Types Packs/Day Years Used Date Smoking Tobacco: Never Smokeless Tobacco: Never Comments:Mom smokes inside. Sex and Gender Information Value Date Recorded Sex Assigned at Not on file Gender Identity Not on file Sexual Orientation Not on file documented as of this encounter Miscellaneous Notes * Telephone Encounter - Coral Kumar - 08/03/2023 10:10 AM EST Patient called back and was scheduled for 12/16/23. Office can call with any questions. * Telephone Encounter - Yudelka Ramirez - 07/30/2023 3:02 PM EDT Scheduling Instructions Provider: Dr Bowden Visit Type (paste EDDIE Instructions or manually enter): Return in about 6 months (around 12/16/2023) for In Clinic or Telehealth If EMG Visit needed list diagnosis for the EMG to be used in Decision Tree: Appt Note: Migraine without aura and without status migrainosus, not intractable Additional Info Needed: documented in this encounter Plan of Treatment Upcoming Encounters Date Type Department Care Team (Late st Contact Info) Description 07/12/2024 8:00 AM EDT [place] [address] Stacey Mendez, [facility] [place] [address] 08/10/2024 9:00 AM EST TH Visit (TeleHealth) [place] [address] Stacey Mendez [facility] [place] [address] 08/30/2024 9:00 AM EST TH Visit (TeleHealth) [place] [address] Stacey Mendez, CONSULTANT INTERN [facility] [place] [address] 10/05/2024 9:00 AM EST TH Visit (TeleHealth) [place] [address] Stacey Mendez [facility] [place] [address] 11/02/2024 2:30 PM EST TH Visit (TeleHealth) [place] [address] Stacey Mendez, [facility] [place] [address] 11/30/2024 3:00 PM EST TH Visit (TeleHealth) [place] [address] Stacey Mendez, [facility] [place] [address] 01/24/2025 8:00 AM EDT TH Visit (TeleHealth) [place] [address] Stacey Mendez [facility] [place] [address] 02/14/2025 8:00 AM EDT TH Visit (TeleHealth) [place] [address] Stacey Mendez [facility] [place] [address] 03/15/2025 4:00 PM EDT TH Visit (TeleHealth) [place] [address] Stacey Mendez, [facility] [place] [address] documented as of this encounter Visit Diagnoses Not on filedocumented in this encounter Care Teams Dust Brush Assembler Relationship Specialty Start Date End Date Curtis Harrington APRN [address] [place] [address] [address] [place] [address] PCP - General Family Medicine 10/16/22 documented as of this encounter
--- OUTSIDE RECORDS SUMMARY | 2024-04-21 02:17 | XMS_ITS | Encounter Summary ---
Author Organization [facility] Address [facility] [place] [address] Care Team Providers Care Radiology Services Manager Name Role Phone Mathew Quigley MD Primary Care Provider [phone] Reason for Visit * Reason Comments Follow-up Encounter Details Date Type Department Care Team (Late st Contact Info) Description 01/11/2018 10:45 AM EDT Office Visit Dermatology at [facility] [address] [place] [address] Yudith Stewart MD [facility] DR [facility] [place] [address] Acanthosis nigricans Social History Tobacco Use Types Packs/Day Years Used Date Smoking Tobacco: Never Smokeless Tobacco: Never Comments:Mom smokes inside. Sex and Gender Information Value Date Recorded Sex Assigned at Not on file Gender Identity Not on file Sexual Orientation Not on file documented as of this encounter Progress Notes * Yudith Stewart MD - 01/11/2018 10:45 AM EDT DERMATOLOGY ESTABLISHED PATIENT CLINIC NOTE Date of service: 01/11/2018 Adis Escobedo : 2000 Provider: Yudith Stewart MD PROBLEM: Follow up SKIN HX: Acanthosis nigricans HPI Mr. Escobedo is a 17 y.o. year old male. Established patient, last seen 10/28/2017. Here today for a follow up Acanthosis nigricans. He has been using AmLactin lotion alternating with Tretinoin. Mom states he stopped both meds due to itching and redness. He is not using anything at this time. With using the products his skin started lightening up. Mom mentioned she feels that his skin is getting better. ADR: Review of patient's allergies indicates no [...] mcg/Actuation inhaler 1-2 puffs, Inh, Q4-6H PRN ??? tretinoin (RETIN-A) 0.05 % Cream Apply topically to affected areas every other night. (Patient not taking: Reported on 01/11/2018) 45 g 3 No current facility-administered medications on file prior to visit. ROS General: feeling well Skin: denies other skin complaints EXAM General: NAD, pleasant, cooperative Skin: Focused skin examination of the bilateral axillae, neck, and abdomen was normal with the exception of the findings listed below. Significant skin findings: A. Brown thick velvety plaques on neck, bilateral axillae, and abdominal folds. ASSESSMENT/PLAN: A. Acanthosis Nigricans - Start Rx: Urea cream - apply topically to affected areas 2-3 x weekly. RTC 6 week acanthosis nigricans follow up, or sooner as needed. Note initiated and routed to physician for review and change by: MOLLY CLOUD is documenting this encounter acting as the scribe for and in the presence of Yudith Stewart MD I performed the above scribed service and agree with the accuracy of the documentation in this encounter. Yudith Stewart MD Section of Dermatology [facility] documented in this encounter Plan of Treatment Upcoming Encounters Date Type Department Care Team (Late st Contact Info) Description 07/12/2024 8:00 AM EDT [place] [address] Stacey Mendez, [facility] [place] [address] 08/10/2024 9:00 AM EST TH Visit (TeleHealth) [place] [address] Stacey Mendez [facility] [place] [address] 08/30/2024 9:00 AM EST TH Visit (TeleHealth) [place] [address] Stacey Mendez [facility] [place] [address] 10/05/2024 9:00 AM EST TH Visit (TeleHealth) Neurology [place] [address] Stacey Mendez [facility] [place] [address] 11/02/2024 2:30 PM EST TH Visit (TeleHealth) [place] [address] Stacey Mendez [facility] [place] [address] 11/30/2024 3:00 PM EST TH Visit (TeleHealth) [place] [address] Stacey Mendez [facility] [place] [address] 01/24/2025 8:00 AM EDT TH Visit (TeleHealth) [place] [address] Stacey Mendez, [facility] [place] [address] 02/14/2025 8:00 AM EDT TH Visit (TeleHealth) [place] [address] Stacey Mendez, [facility] [place] [address] 03/15/2025 4:00 PM EDT TH Visit (TeleHealth) [place] [address] Stacey Mendez, [facility] [place] [address] documented as of this encounter Visit Diagnoses Diagnosis Acanthosis nigricans Acquired acanthosis nigricans documented in this encounter Care Teams Radiology Services Manager Relationship Specialty Start Date End Date Mathew Quigley MD [address] [place] [address] PCP - General 08/19/10 02/09/22 documented as of this encounter
--- OUTSIDE RECORDS SUMMARY | 2024-04-21 02:17 | XMS_ITS | Encounter Summary ---
Author Organization [facility] [place] [address] Care Team Providers Care Simulation Software Engineer Name Role Phone Curtis Harrington APRN Primary Care Provider [phone] Encounter Details Date Type Department Care Team (Latest Contact Info) Description 06/17/2023 Travel Social History Tobacco Use Types Packs/Day [...] 8:00 AM EDT Office [place] [address] Stacey Mendez NUCLEAR MEDICINE TECHNICIAN [facility] [place] [address] 08/10/2024 9:00 AM EST TH Visit (TeleHealth) [place] [address] Stacey Mendez NUCLEAR MEDICINE TECHNICIAN [facility] [place] [address] 08/30/2024 9:00 AM EST TH Visit (TeleHealth) [place] [address] Stacey Mendez, [facility] [place] [address] 10/05/2024 9:00 AM EST TH Visit (TeleHealth) Neurology at [facility] Stacey Mendez, [facility] [place] [address] 11/02/2024 2:30 PM EST TH Visit (TeleHealth) Neurology at [place] [address] Stacey Mendez, [facility] [place] [address] 11/30/2024 3:00 PM EST TH Visit (TeleHealth) Neurology at [facility] [place] [address] Stacey Mendez, [facility] [place] [address] 01/24/2025 8:00 AM EDT TH Visit (TeleHealth) Neurology at [place] [address] Stacey Mendez, [facility] [place] [address] 02/14/2025 8:00 AM EDT TH Visit (TeleHealth) [place] [address] Stacey Mendez [facility] [place] [address] 03/15/2025 4:00 PM EDT TH Visit (TeleHealth) Neurology [place] [address] Stacey Mendez APRN [facility] [place] [address] documented as of this encounter Visit Diagnoses Not on filedocumented in this encounter Care Teams Simulation Software Engineer Relationship Specialty Start Date End Date Curtis Harrington APRN [address] [place] [address] [address] [place] [address] PCP - General Family Medicine 10/16/22 documented as of this encounter
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
--- OUTSIDE RECORDS SUMMARY | 2024-04-21 02:17 | XMS_ITS | Encounter Summary ---
Author Organization [facility] Address [facility] [address] Care Team Providers Care Spinning Lathe Operator Name Role Phone Mathew Quigley MD Primary Care Provider [phone] Encounter Details Date Type Department Care Team (Late st Contact Info) Description 01/12/2018 Telephone Dermatology at [facility] [address] [place] [address] Janine Zhang MD [facility] DR [facility] [place] [address] Social History Tobacco Use Types Packs/Day Years Used Date Smoking Tobacco: Never Smokeless Tobacco: Never Comments:Mom smokes inside. Sex and Gender Information Value Date Recorded Sex Assigned at Not on file Gender Identity Not on file Sexual Orientation Not on file documented as of this encounter Miscellaneous Notes * Telephone Encounter - Renu Bartlett LPN - 01/13/2018 8:49 AM EDT Spoke with Dr. Stewart and she would like to switch the script to Urea cream instead of the lotion. Called and L/M for Stacey (mom) letting her know that there will be a printed script with a coupon andGood Rx card in the mail. She can bring it to [facility] and instead of using her insurance she can use the Good rx card and coupon and pay $28.98 or she can try brining it to the [facility] and see which is cheaper. Script, coupon and Good rx card mailed out today. * Telephone Encounter - Hien Alaniz - 01/12/2018 4:[address] Stewart patient Adis Sears had an appointment with Dr. Stewart on 01/11/18 at 10:45am, and has a follow up appointment on 03/17/18 at 10:45am. Mom Stacey called stating that the Urea needs a PA. I spoke to Charisse at [facility] [place] in [facility], a PA is not needed, and he has a deductible of $139.77. Stacey would like to know if another medication can be prescribed, and is available at [phone]. Thank you, Hien documented in this encounter Plan of Treatment Upcoming Encounters Date Type Department Care Team (Late st Contact Info) Description 07/12/2024 8:00 AM EDT [place] [address] Stacey Mendez QUESTIONED DOCUMENTS EXAMINER [facility] [place] [address] 08/10/2024 9:00 AM EST TH Visit (TeleHealth) [place] [address] Stacey Mendez APRN [facility] [place] [address] 08/30/2024 9:00 AM EST TH Visit (TeleHealth) [place] [phone] Stacey Mendez APRN [facility] [place] [address] 10/05/2024 9:00 AM EST TH Visit (TeleHealth) [place] [address] Stacey Mendez, [facility] [place] [address] 11/02/2024 2:30 PM EST TH Visit (TeleHealth) [place]rology [place] [facility] [place] [address] Stacey Mendez, [facility] [place] [address] 11/30/2024 3:00 PM EST TH Visit (TeleHealth) Neurology [place] [facility] [place] [address] Stacey Mendez, [facility] [place] [address] 01/24/2025 8:00 AM EDT TH Visit (TeleHealth) [place] [address] Stacey Mendez, [facility] [place] [address] 02/14/2025 8:00 AM EDT TH Visit (TeleHealth) [place] [address] Stacey Mendez [facility] [place] [address] 03/15/2025 4:00 PM EDT TH Visit (TeleHealth) [place] [address] Stacey Mendez, [facility] [place] [address] documented as of this encounter Visit Diagnoses Not on filedocumented in this encounter Care Teams Spinning Lathe Operator Relationship Specialty Start Date End Date Mathew Quigley MD [address] [place] [address] PCP - General 08/19/10 02/09/22 documented as of this encounter
--- OUTSIDE RECORDS SUMMARY | 2024-04-21 02:18 | XMS_ITS | Encounter Summary ---
Author Organization [facility] Address [facility] Emeterio [place]ay[place] [address] Care Team Providers Care Copy Center Associate Name Role Phone Mathew Quigley MD Primary Care Provider [phone] Encounter Details Date Type Department Care Team (Late st Contact Info) Description 04/30/2011 Orders Only Pediatric [place] [address] Denilson Membreno MD [facility] [address] [place] [address] Social History Tobacco Use Types Packs/Day Years [...] 8:00 AM EDT Office [place] [phone] Stacey Mendez APRN [facility] [place] [address] 08/10/2024 9:00 AM EST TH Visit (TeleHealth) [place] [phone] Stacey Mendez, [facility] [place] [address] 08/30/2024 9:00 AM EST TH Visit (TeleHealth) Neurology at [place] [phone] Stacey Mendez, [facility] [place] [address] 10/05/2024 9:00 AM EST TH Visit (TeleHealth) Neurology at [place] [phone] Stacey Mendez, [facility] [place] [address] 11/02/2024 2:30 PM EST TH Visit (TeleHealth) Neurology at [place] [phone] Stacey Mendez, [facility] [place] [address] 11/30/2024 3:00 PM EST TH Visit (TeleHealth) [place] [address] Stacey Mendez, [facility] [place] [address] 01/24/2025 8:00 AM EDT TH Visit (TeleHealth) [place] [address] Stacey Mendez [facility] [place] [address] 02/14/2025 8:00 AM EDT TH Visit (TeleHealth) [place] [address] Stacey Mendez, [facility] [place] [address] 03/15/2025 4:00 PM EDT TH Visit (TeleHealth) Neurology at [facility] [place] [address] Stacey Mendez, [facility] [place] [address] documented as of this encounter Procedures Procedure Name Priority Date/Time Associated Diagnosis Comments SPIROMETRY WO BRONCHODILATOR Routine 03/25/2011 documented in this encounter Results * Spirometry without bronchodilator (03/25/2011) Denilson Membreno MD NURSING TREATMENT OR DERABLES - ONCE OR AT INTERVALS documented in this encounter Visit Diagnoses Not on filedocumented in this encounter Care Teams Copy Center Associate Relationship Specialty Start Date End Date Mathew Quigley MD [address] [place] [address] [place] [address] PCP - General 08/19/10 02/09/22 documented as of this encounter
--- OUTSIDE RECORDS SUMMARY | 2024-04-21 02:18 | XMS_ITS | Encounter Summary ---
Author Organization [facility] Address [address] [place] [address] Care Team Providers Care Senior Care Manager Name Role Phone Curtis Harrington Primary Care Provider [phone] Reason for Visit * Reason Comments Neurologic Problem * Consult, Test and Treat (Routine) - Receiving Office to Obtain Authorization Specialty Diagnoses / Procedures Referred By Yamilet greenwood Referred To Contact Ophthalmology Diagnoses Optic atrophy Vera Moffett [address] [place] [address] [place] [address] Michael Thayer MD [address] [place] [phone] Referral ID Status Reason Start Date Expiration Date Visits Requested Visits Authorized [id number] Receiving Office to Obtain Authorization 1 1 Encounter Details Date Type Department Care Team (Late st Contact Info) Description 07/20/2023 12:30 EDT Office Visit [facility] Ophthalmology - [address] [phone] Michael Thayer MD [address] [place] [phone] Social History Tobacco Use Types Packs/Day Years Used Date Smoking Tobacco: Never Assessed Sex and Gender Information Value Date Recorded Sex Assigned at Not on file Gender Identity Not on file Sexual Orientation Not on file documented as of this encounter Progress Notes * Michael Thayer MD - 07/20/2023 1230 EDT [facility] NEURO-OPHTHALMOLOGY CONSULTATION - 07/20/2023 Patient: Adis Escobedo : [address] Moffett, Thank you for requesting neuro-ophthalmological consultation on Mr. Escobedo because of the history of anomalous appearing optic nerves. 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 The patient reported a family history of visual difficulties and a diagnosis of optic atrophy dating to 2013. The patient has increasingly noticed difficulty with transition from bright to dark environments. He also reports some degree of dry eye symptoms and burning of the vision particularly if he is trying to watch television or playing videogames for too long. He denies flashes or floaters. The patient does not experience headaches or double vision. At the time of his visit with you in the spring his best corrected visual acuity was 20/25 in the right eye and 20/20 in the left eye. Each nerve was thought to be somewhat pale with little to no cup. 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 Specific to the patient's diagnosis he reports that he was not aware of his poor color vision. Overall, he reports that his vision is relatively stable. The patient experiences rare headaches he denies other difficulties. The patient is followed at neurology in the headache clinic there and has common migraine. They have also evaluated him due to jerky movements that at least includes seizure in the differential. There was also an episode over the summer where the patient experienced a spell concerning for mini stroke per the notes. The patient has had MRI and EEG at [facility]. The ocular history significant for optic atrophy as noted above. Medical history includes migraine and spells as noted above. There is also history of concussion. His surgical history includes tonsils and adenoids, appendectomy, and fractured left arm repair. Medications were reviewed as documented in the EHR to include; metoprolol (for migraine prophylaxis). The patient is allergic to keflex [cephalexin]. The social history finds the patient does not smoke. He reports alcohol moderation denies recreational drug use. The family history includes a history of painless progressive vision loss in his paternal grandfather and father. The patient's father was evaluated in [place] and told that his condition is similar to Sunny's but not the same. There is a paternal uncle with glaucoma. There is no other known neurologic or ophthalmologic disease in the family.. The neuro-ophthalmic examination found the patient to be communicative and cooperative for testing.Visual acuities without correction were 20/25-2 in the right eye and 20/25 in the left eye without pinhole or refractive refinement. Color vision (Ishihara) showed 0/14 correct plates in each eye tested individually. Amsler grid testing showed no metamorphopsia. The pupils were equal in size and showed normal response to light near without afferent pupillary defect or dilatation lag. The externalexamination of the eyes and orbits revealed dermatochalasia. The lids were normal position with no lid lag or twitch. Examination of extraocular motility showed no strabismus. Versions and ductions were full. Pursuit and saccade function was normal. There was no nystagmus. Applanation tonometry at 1226 hrs. was 14 mm heather in the right eye, 14 mmHg in the left eye. Automated (Gomes) visual yee were performed with excess technical difficulty. The right eye showed areas of decreased sensitivity superior/superior temporally with a mean deviation score -6.58 dB and a foveal threshold of 23 dB. The left eye showed a general pattern of depression greatest superior/superior temporally with a mean deviation score -17.78 dB and a foveal threshold of 24 dB. Undilated stereoscopic (indirect) funduscopy found both optic nerves to be diffusely pale with little to no discernible cup. The vessels were mildly tortuous, the macula were unremarkable. Spectral domain OCT nerve fiber layer analysis demonstrated generalized thinning in each optic nerve with a least some suggestion to this more predominantly involves the temporal nerve fiber. Overallaverage nerve fiber thickness of the discs were 54 ??m on the right and 54 ??m on the left. Averageganglion cell layer thickness at the macula were 52 ??m on the right and 50 ??m on the left. FORMULATION: This is a 23-year-old man seen for neuro-ophthalmic evaluation because a history of bilateral optic atrophy. There is a strong family history with both his paternal father and paternal grandfather affected. 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 Dominant optic atrophy or OPA 1 codes for a mitochondrial protein that is transcribed from nuclear genes and there are other mutations that can be inherited and manifest in some otherwise. There are increasing investigations into possible treatment modalities for these types of difficulties including at least two clinical trials doing gene therapy for the most common mutations for labors hereditary optic neuropathy. In the near future there may be interventions for other inherited optic atrophy's and as such I recommended we will obtain genetic testing for the same. In addition, I have recommended the patient supplement with [id number] which may be beneficial in supporting mitochondrial health. I will reexamine the patient in six months, certainly sooner if new concerns arise in the interval. I spent a total of 45 minutes on the date of this encounter meeting with the patient and reviewing documentation/coordinating care as described in the above note. Thank you for allowing me to share in the care of your patient. Please do not hesitate to contact me with any further questions or concerns. Sincerely, Michael Thayer MD Diplomate, the [place] [employer] Neu[employer] inner diameter grinder tool Department of Ophthalmology documented in this encounter Plan of Treatment Pending Results Name Type Priority Associated Diagnoses Date /Time GOMES VF 24-2 FAST - OU - BOTH EYES Ophthalmology Routine Optic atrophy 07/20/2023 16:14 EDT OCT, OPTIC NERVE - OU - BOTH EYES Ophthalmology Routine Optic atrophy 07/20/2023 16:13 EDT documented as of this encounter Procedures Procedure Name Priority Date/Time Associated Diagnosis Comments GOMES VF 24-2 FAST - OU - BOTH EYES Routine 07/20/2023 16:14 EDT Optic atrophy OCT, OPTIC NERVE - OU - BOTH EYES Routine 07/20/2023 16:13 EDT Optic atrophy documented in this encounter Results * MISCELLANEOUS TEST, [place] (07/20/2023 14:15 EDT) [facility] Miscellaneous Test, [place] SEE NOTE 08/10/2023 15:34 EST [facility] Comment: Test ?Result ?Flag ??Unit ??RefValue Nuclear Mitochondrial Gene Panel ??Test Description ?SEE NOTE ?Evaluation of 221 genes associated with nuclear ?mitochondrial disorders ??Specimen ?WB Whole Blood ??Source ?Not Reported ?Result Summary ?Variants of Uncertain Significance Detected ??Result ?SEE NOTE ?The following VARIANTS OF UNCERTAIN SIGNIFICANCE were ?detected: ?CARS2 (NM_[id number]), chr13(GRCh37):g.[id number]>A, ?c.1331C>T, p.Sok071Trt (p.P444L), heterozygous ?NARS2 (NM_024678.6), chr11(GRCh37):g.11587347G>A, ?c.670C>T, p.Qdb077Xfx (p.H224Y), heterozygous ?SARS2 (NM_017827.4), chr19(GRCh37):g.56703892P>T, ?c.337G>A, p.Gbq542Npj (p.V113M), heterozygous ?No additional reportable variants were detected within all ?other tested genes. See the Genes Analyzed section for a ?complete list of genes evaluated by this assay. ??Interpretation ?SEE NOTE ?CARS2 c.1331C>T (p.Iny853Zss), VARIANT OF UNCERTAIN ?SIGNIFICANCE ?The heterozygous c.1331C>T (p.Llc145Qhl) missense variant ?in the CARS2 gene (MAIRA:[id number]) is classified as a variant ?of uncertain significance. Pathogenic variants in the CARS2 ?gene have been associated with autosomal recessive combined ?oxidative phosphorylation deficiency. To our knowledge, ?this variant has not been reported in affected individuals. ?The overall minor allele frequency for this variant ?([id number]) is approximately 0.035% with a frequency up ?to 0.069% in Non-Italian sub-populations (1,2). ?This amino acid is moderately conserved across species and ?an in silico meta-predictor suggests that this amino acid ?change is unlikely to impact protein function. Taken ?together, the evidence is not sufficient to determine ?whether this variant is benign or pathogenic. Therefore, ?this variant is classified as a variant of uncertain ?significance. ?NARS2 c.670C>T (p.Hsj256Wlb), VARIANT OF UNCERTAIN ?SIGNIFICANCE ?The heterozygous c.670C>T (p.Yzb410Etr) missense variant ?in the NARS2 gene (MAIRA:560185) is classified as a variant ?of uncertain significance. Pathogenic variants in the NARS2 ?gene have been associated with autosomal recessive combined ?oxidative phosphorylation deficiency. This variant has been ?reported in patients with Krystle syndrome (3,4). However, ?functional studies have not been performed to either ?support or refute the pathogenicity of this variant. The ?overall minor allele frequency for this variant ?([id number]) is approximately 0.001% with a frequency up ?to 0.002% in Non-Italian sub-populations (1,2). ?and an in silico meta-predictor is inconclusive as to ?whether this amino acid change impacts protein function. ?Taken together, the evidence is not sufficient to determine ?whether this variant is benign or pathogenic. Therefore, ?this variant is classified as a variant of uncertain ?significance. ?SARS2 c.337G>A (p.Osm404Usm), VARIANT OF UNCERTAIN ?SIGNIFICANCE ?The heterozygous c.337G>A (p.Wnd031Cwo) missense variant ?in the SARS2 gene (MAIRA:964741) is classified as a variant ?of uncertain significance. Pathogenic variants in the SARS2 ?gene have been associated with autosomal recessive ?hyperuricemia, pulmonary hypertension, renal failure and ?alkalosis syndrome (HUPRA). To our knowledge, this variant ?has not been reported in affected individuals. The overall ?minor allele frequency for this variant ([id number]) is ?<0.005% with a frequency up to 0.001% in Non-Italian ? sub-populations (1,2). This amino acid is highly ?conserved across species and an in silico meta-predictor ?suggests that this amino acid change is unlikely to impact ?protein function. Taken together, the evidence is not ?sufficient to determine whether this variant is benign or ?pathogenic. Therefore, this variant is classified as a ?variant of uncertain significance. ?Individuals may have a pathogenic variant in one of the ?interrogated genes that is not detectable by the methods ?utilized. Additionally, the clinical phenotype that is ?observed in this individual and/or family may be due to a ?pathogenic variant or variants in another gene not targeted ?by this test. ?This result should be interpreted in the context of ?clinical findings, family history, and other laboratory ?testing. ?Consultation with a genetics professional is recommended ?for interpretation of this result and to determine whether ?reproductive risk assessment and familial testing may be of ?benefit to this family. Genetic testing for family members ?is available by ordering FMTT / Familial Mutation, Targeted ?Testing for the specific variant(s) detected. Please ?contact the laboratory at or the online test ?catalog at www.Snapvine for information about ?FMTT. ?REFERENCES: ?1) dbSNP: www.ncbi.nlm.nih.gov/snp/ ?2) gnomAD Browser: gnMobileAccess [email or web address].Information Development Consultantsute.[email or web address]/ ?3) Bong [place], Ng YS, Yosvany A, et al. Natural History of Krystle ?Syndrome: A Study of Disease [place] and Progression. Radha ?Neurol. 2021;91(1):117-130. doi:10.1002/merna.84909 (PMID ?22059778) ?4) Filemon CE, Evan H, Mario K, et al. Refinements and ?considerations for trio whole-genome sequence analysis when ?investigating Mendelian diseases presenting in early ?childhood. HGG Adv. 2021;3(3):603967. Published 2021 ?25. doi:10.1016/j.xhgg.202.060806 (PMID 46364303) ??Additional Results ?Not Reported ?Resources ? Not Reported ?Additional Information ?Not Reported ?Method ?SEE NOTE ?Next generation sequencing (NGS) and/or [place] sequencing ?was performed to test for the presence of variants in ?coding regions and intron/exon boundaries of the genes ?analyzed, as well as some other regions that have known ?pathogenic variants. NGS and/or a polymerase chain reaction ?(PCR)-based quantitative method was performed to test for ?the presence of deletions and duplications in the genes ?analyzed. The human genome reference GRCh37/hg19 build was ?used for sequence read alignment. At least 99% of the bases ?are covered at a read depth over 30X. Sensitivity is ?estimated at above 99% for single nucleotide variants, ?above 94% for indels less than 40 base pairs (bp), above ?95% for deletions up to 75 bp and insertions up to 47 bp. ?See the Genes Analyzed field for a list of genes tested. ?There may be regions of genes that cannot be effectively ?evaluated for sequencing or deletion and duplication ?analysis as a result of technical limitations of the assay, ?including regions of homology, high GC content, and ?repetitive sequences. Confirmation of select reportable ?variants was performed by alternate methodologies based on ?internal laboratory criteria. See [email or web address] ?(TEST ID NMITO) for details regarding genes with regions ?not routinely covered. ??Genes Analyzed ?SEE NOTE ?AARS2, ABAT, ABCB7, ACACA, ACAD9, ACO2, AFG3L2, AGK, ?AIFM1, RABN3Y2, APOPT1 (COA8), APTX, MEC7F8B, WVH9F9D, ?ATPAF2, AUH, BCS1L, BOLA3, U05rve87 (MTRFR), CA5A, CARS2, ?CHAT, CHCHD10, CLPP, COA5, COA6, COASY, COQ2, COQ4, COQ6, ?COQ7, COQ8A, COQ8B, COQ9, COX10, COX14, COX15, COX20, ?COX4I1, COX4I2, COX6A1, COX6A2, COX6B1, COX7B, COX8A, ?CPT1C, CYC1, D2HGDH, DARS2, DGUOK, DLAT, DLD, DNA2, ?DNAJC19, DNM1L, EARS2, ELAC2, ETFA, ETFB, ETFDH, ETHE1, ?FARS2, FASTKD2, FBXL4, FDX2, FDXR, FH, FOXRED1, FXN, GAMT, ?GARS1, GCDH, GDAP1, GFER, GFM1, GFM2, GLYCTK, GPT2, GTPBP3, ?HARS2, HIBCH, HK1, HSPD1, IARS2, IBA57, IDH2, INF2, ISCU, ?L2HGDH, LARS2, LIAS, LRPPRC, LYRM4, LYRM7, MARS2, MFF, ?MGME1, MICU1, MPC1, MPV17, MRPL3, MRPL44, MRPS16, MRPS2, ?MRPS22, MRPS7, MSTO1, MTFMT, MTO1, MTPAP, NARS2, NBAS, ?NDUFA1, NDUFA10, NDUFA11, NDUFA12, NDUFA13, NDUFA2, NDUFA4, ?NDUFA9, NDUFAF1, NDUFAF2, NDUFAF3, NDUFAF4, NDUFAF5, ?NDUFAF6, NDUFB3, NDUFB9, NDUFS1, NDUFS2, NDUFS3, NDUFS4, ?NDUFS6, NDUFS7, NDUFS8, NDUFV1, NDUFV2, NFU1, NR2F1, NUBPL, ?OGDH, OPA1, OPA3, OXCT1, PANK2, PARS2, PC, PCK2, PDHA1, ?PDHB, PDHX, PDP1, PDSS1, PDSS2, CDF885, PNKD, PNPT1, POLG, ?POLG2, PTRH2, PUS1, QARS1, RARS1, RARS2, RMND1, RNASEH1, ?RRM2B, XML5HD5, SACS, SARS2, SCO1, SCO2, SDHAF1, SERAC1, ?SFXN4, PNV97F6, GEH07E9, EAM73C36, PFQ44W54, UBP13U27, ?WHY43Z77, WRQ71P8, BYB36Y5, ANL07E36, VVT56S70, OPL06X6, ?SLC9A6, SOD1, SPG7, SUCLA2, SUCLG1, SUGCT, SURF1, TACO1, ?TARS2, IVANNA (TAFAZZIN), TFAM, TIMM8A, TK2, ZFPB828Y, ?LZZQ027Z, TMEM70, TOP3A, TPK1, TRIT1, FZWL43X, TRMU, TRNT1, ?TSFM, TTC19, TUFM, TWNK, TYMP, UQCC2, UQCRB, UQCRC2, UQCRQ, ?VARS2, WDR45, XPNPEP3 and YARS2 ??Disclaimer ?SEE NOTE ?Clinical Correlations ?An online research opportunity called GenomeSynthonicsnect ?([email or web address]), a project of [employer], is available for ?the recipient of this genetic test. This patient registry ?collects de-identified genetic and health information to ?advance the knowledge of genetic variants. [facility] is a ?collaborator of [employer]. This may not be applicable for all ?tests. ?If testing was performed because of a clinically ?significant family history it is often useful to first test ?an affected family member. Detection of a reportable ?variant(s) in an affected family member would allow for ?more informative testing of at risk individuals. ?To discuss the availability of further testing options or ?for assistance in the interpretation of these results, [place] [facility] genetic counselors can be contacted at ? . ?Technical Limitations ?Next generation sequencing may not detect all types of ?genomic variants. In rare cases, false negative or false ?positive results may occur. The depth of coverage may be ?variable for some target regions, but assay performance ?below the minimum acceptable criteria or for failed regions ?will be noted. Given these limitations, negative results do ?not rule out the diagnosis of a genetic disorder. If a ?specific clinical disorder is suspected, evaluation by ?alternative methods can be considered. ?There may be regions of genes that cannot be effectively ?evaluated for sequencing or deletion and duplication ?analysis as a result of technical limitations of the assay, ?including regions of homology, high GC content, and ?repetitive sequences. Confirmation of select reportable ?variants was performed by alternate methodologies based on ?internal laboratory criteria. ?Additionally, low level mosaic variants may not be ?detected. ?This test is not designed to differentiate between somatic ?and germline variants. If there is a possibility that any ?detected variant is somatic, additional testing may be ?necessary to clarify the significance of results. ?Genes may be added or removed based on updated clinical ?relevance. Please refer to the Targeted Genes and ?Methodology Details for the Nuclear Mitochondrial Gene ?Panel in the Special Instructions section of the Test ?Catalog for the most up to date list of genes included in ?this test. ?Reclassification of Variants Policy ?See www.[email or web address].TrialReach (TEST ID NMITO) for information ?regarding the laboratory's policy for reclassification of ?variants. ?Variant Evaluation ?Variant curation is performed using published ACMG-AMP ?recommendations as a guideline. Other gene-specific ?guidelines may also be considered. Variants classified as ?benign or likely benign are not reported. ?Results from in silico evaluation tools may manager change ?time and should be interpreted with caution and ?professional clinical judgment. ?TEST CLASSIFICATION ?This test was developed and its performance ?characteristics determined by [facility] in a manner ?consistent with CLIA requirements. This test has not been ?cleared or approved by the U.S. Food and Drug ?Administration. ??Released By ? Jason Montero, Ph.D. ?Test Performed by: ?[facility] ?[address] [place] [address] ?Air Pollution Inspector: Jarett Post M.D. Ph.D.; CLIA# [id number] Blood VENOUS BLOOD / Unknown Venipuncture / Unknown 07/20/2023 14:15 EDT 07/20/2023 14:24 EDT Michael Thayer MD CHEMISTRY & BLOO D GAS ORDERABLES [facility] [address] [place] [address] documented in this encounter Visit Diagnoses Diagnosis Optic atrophy- Primary Optic atrophy, unspecified documented in this encounter Historical Medications * This list may reflect changes made after this encounter. Medication Sig Dispensed Refills Start Date End Date metoprolol TARtrate tartrate 37.5 mg tablet Take 50 mg by mouth daily. added in this encounter Eye Exam Visual Acuity (Snellen - Linear) Right eye Left eye Dist sc 20/25 -2 20/25 Tonometry (Applanation, 12:26) Right eye Left eye Pressure 14 14 Pupils Dark Light Shape React APD Right eye 6 5 Round Slow None Left eye 6 5 Round Slow None Visual Yee Right eye Left eye Full Full Extraocular Movement Right eye Left eye Full, Ortho Full, Ortho Neuro/Psych Oriented x3: Yes Mood/Affect: Normal Color Right eye Left eye Ishihara 0/14 0/14 Care Teams Senior Care Manager Relationship Specialty Start Date End Date Curtis Harrington [address] [place] [id number] PCP - General Family Medicine - Hospital Medicine 07/20/23 documented as of this encounter
--- OUTSIDE RECORDS SUMMARY | 2024-04-21 02:18 | XMS_ITS | Encounter Summary ---
Author Organization [facility] [place] [address] Care Team Providers Care University Lecturer Name Role Phone Unavailable Primary Care Provider Unavailabl e Encounter Details Date Type Department Care Team (Late st Contact Info) Description 07/28/2010 9:30 AM EDT [place] [address] Denilson Membreno MD [facility] [place] [address] Social History Tobacco Use Types Packs/Day Years [...] 8:00 AM EDT [place] [address] Stacey Mendez APRN [facility] [place] [address] 08/10/2024 9:00 AM EST TH Visit (TeleHealth) [place] [phone] Mendez, Stacey B, [facility] [place] [address] 08/30/2024 9:00 AM EST TH Visit (TeleHealth) Neurology [place] [address] Stacey Mendez, [facility] [place] [address] 10/05/2024 9:00 AM EST TH Visit (TeleHealth) Neurology [place] [address] Stacey Mendez, [facility] [place] [address] 11/02/2024 2:30 PM EST TH Visit (TeleHealth) [place] [address] Stacey Mendez, [facility] [place] [address] 11/30/2024 3:00 PM EST TH Visit (TeleHealth) Neurology [place] [address] Stacey Mendez, [facility] [place] [address] 01/24/2025 8:00 AM EDT TH Visit (TeleHealth) [place] [address] Stacey Mendez, [facility] [place] [address] 02/14/2025 8:00 AM EDT TH Visit (TeleHealth) [place] [address] Stacey Mendez, [place] [address] 03/15/2025 4:00 PM EDT TH Visit (TeleHealth) [place] [address] Stacey Mendez, [place] [address] documented as of this encounter Visit Diagnoses Not on filedocumented in this encounter
--- OUTSIDE RECORDS SUMMARY | 2024-04-21 02:18 | XMS_ITS | Encounter Summary ---
Author Organization [facility] Address [address] [place] [address] Care Team Providers Care Urology Physician Assistant Name Role Phone Curtis Harrington Primary Care Provider [phone] Reason for Visit * Reason Comments Eye Problem Pt referred by PMS f or retinal dystrophy. Pt has optic atrophy also. Pt's G-father (Thiago Escobedo) is a Pt of [facility]. 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 Pt C/O has trouble going from dark to light. Doesn't seem to adjust quick enough. Also say intermittent decreased vision right eye. Uses readers rec'd by [facility] in [facility]. Pt uses allergy drops as needed. Encounter Details Date Type Department Care Team (Late Contact Info) Description 04/19/2024 12:30 EDT Office Visit [facility] Ophthalmology - [address] [id number] José Luis Powell MD [address] [place] [address], [address] [place] [address] Arrived Social History Tobacco Use Types Packs/Day Years Used Date Smoking Tobacco: Never Assessed Sex and Gender Information Value Date Recorded Sex Assigned at Not on file Gender Identity Not on file Sexual Orientation Not on file documented as of this encounter Progress Notes * Janelle Almeida - 04/19/2024 1230 EDT ` * José Luis Powell MD - 04/19/2024 1230 EDT Chief Complaint Patient presents with Eye Problem Pt referred by PMS for retinal dystrophy. Pt has optic atrophy also. Pt's G- father (Thiago Escobedo) is a Pt of [facility]. 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 Pt C/O has trouble going from dark to light.Doesn't seem to adjust quick enough. Also say intermittent decreased vision right eye. Uses readersrec'd by [facility] in [facility]. Pt uses allergy drops as needed. HPI Eye Problem Comments: Pt referred by PMS for retinal dystrophy. Pt has optic atrophy also. Pt's G-father (Thiago Escobedo) is a Pt of [facility]. 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 Pt C/O has trouble going from darkto light. Doesn't seem to adjust quick enough. Also say intermittent decreased vision right eye. Uses readers rec'd by [facility] in [facility]. Pt uses allergy drops as needed. Base Eye Exam Visual Acuity (Snellen - Linear) Right Left Dist sc 20/40-2+1 20/30-2+1 Dist ph sc Min Min Tonometry (Applanation, 12:38, WS) Right Left Pressure ~16 ~14 Appears to have trouble controlling eye mvmts. Difficult to get accurate IOP. WS Neuro/Psych Oriented x3: Yes Mood/Affect: Normal Dilation Both eyes: Tropicamide 1%, Phenylephrine 2.5% @ 12:40 Additional Tests Color Right Left Ishihara Nil Nil Slit Lamp and Fundus Exam Slit Lamp Exam Right Left Lids/Lashes Normal Normal Conjunctiva/Sclera White and quiet White and quiet Cornea Clear Clear Anterior Chamber Deep and quiet Deep and quiet Iris Round and reactive Round and reactive Lens Clear Clear Fundus Exam Right Left Disc Pale Pale C/D Ratio 0.4 0.4 Macula looks normal looks normal Vessels Normal Normal Periphery Normal Normal Please refer to large retinal drawing. OCT, Retina - OU - Both Eyes OCT REPORT Indications: Findings: Right Eye Left Eye PM bundle thinning PM bundle thinning Original test to be found in patients shadow chart IMPRESSION: 1. Optic neuropathy, bilateral PLAN: Anomalus appearing Optic nerves with suspicion of Congenital atrophy. Doubt Cone dystrophy Primarily Optic Nerve problem. May have Genetic testing. Think is primarily Optic Nerve problem will talk with Dr Thayer Return for With Dr Thayer/ or Dr Paiz. I, José Luis Powell MD, have performed my own history, and have evaluated and examined the patient myself. I am scribing for José Luis Powell MD while he is personally performing the service. MARYC Coker (Scribe) documented in this encounter Plan of Treatment Not on file documented as of this encounter Procedures Procedure Name Priority Date/Time Associated Diagnosis Comments OCT, RETINA - OU - BOTH EYES Routine 04/19/2024 17:21 EDT Optic neuropathy, bilateral documented in this encounter Results * OCT, RETINA - OU - BOTH EYES (04/19/2024 17:21 EDT) Narrative [facility] - 04/19/2024 17:21 EDT Table formatting from the original result was not included. OCT REPORT Indications: ??Optic atrophy ?? Findings: Right Eye Left Eye PM bundle thinning ??PM bundle thinning ?? Original test to be found in patients shadow chart José Luis Powell MD OPHTH TOMOGRAPHY [facility] documented in this encounter Visit Diagnoses Diagnosis Optic neuropathy, bilateral- Primary Other optic neuritis documented in this encounter Historical Medications * This list may reflect changes made after this encounter. Medication Sig Dispensed Refills Start Date End Date Multivitamins with Minerals tablet tablet Take 1 Tablet by mouth daily. added in this encounter Eye Exam Visual Acuity (Snellen - Linear) Right eye Left eye Dist sc 20/40-2+1 20/30-2+1 Dist ph sc Min Min Tonometry (Applanation, 12:38, WS) Right eye Left eye Pressure ~16 ~14 Appears to have trouble controlling eye mvmts. Difficult to get accurate IOP. WS Neuro/Psych Oriented x3: Yes Mood/Affect: Normal Dilation Both eyes: Tropicamide 1%, P henylephrine 2.5% @ 12:40 Color Right eye Left eye Ishihara Nil Nil Slit Lamp Exam Right eye Left eye Lids/Lashes Normal Normal Conjunctiva/Sclera White and quiet White and chris et Cornea Clear Clear Anterior Chamber Deep and quiet Deep and quiet Iris Round and reactive Round and beckie ctive Lens Clear Clear Fundus Exam Right eye Left eye Disc Pale Pale C/D Ratio 0.4 0.4 Macula looks normal looks normal Vessels Normal Normal Periphery Normal Normal Care Teams Urology Physician Assistant Relationship Specialty Start Date End Date Curtis Harrington [address] [place] [id number] PCP - General Family Medicine - [facility] 07/20/23 documented as of this encounter
--- OUTSIDE RECORDS SUMMARY | 2024-04-21 02:18 | XMS_ITS | Encounter Summary ---
Author Organization [facility] Address [address] [place] [address] Care Team Providers Care Steel Welder Name Role Phone Len Curtis Ordonez Primary Care Provider [phone]- [phone] Encounter Details Date Type Department Care Team (Late st Contact Info) Description 07/20/2023 13:45 EDT Phlebotomy Only [facility] 2 Phlebotomy [address], [place] [id number] [employer], Acc Phlebotomy Optic atrophy Social History Tobacco Use Types Packs/Day Years Used Date Smoking Tobacco: Never Assessed Sex and Gender Information Value Date Recorded Sex Assigned at Not on file Gender Identity Not on file Sexual Orientation Not on file documented as of this encounter Plan of Treatment Not on file documented as of this encounter Procedures Procedure Name Priority Date/Time Associated Diagnosis Comments MISCESARANEOUS TESTLEONARD Routine 07/20/2023 14:15 EDT Optic atrophy documented in this encounter Results * MISCELLANEOUS TEST, COSTA (07/20/2023 14:15 EDT) Miscellaneous Test, Costa SEE NOTE 08/10/2023 15:34 EST [facility] Comment: Test ?Result ?Flag ??Unit ??RefValue Nuclear Mitochondrial Gene Panel ??Test Description ?SEE NOTE ?Evaluation of 221 genes associated with nuclear ?mitochondrial disorders ??Specimen ?WB Whole Blood ??Source ?Not Reported ?Result Summary ?Variants of Uncertain Significance Detected ??Result ?SEE NOTE ?The following VARIANTS OF UNCERTAIN SIGNIFICANCE were ?detected: ?CARS2 (NM_024537.4), chr13(GRCh37):g.[id number]>A, ?c.1331C>T, p.Epc158Xii (p.P444L), heterozygous ?NARS2 (NM_024678.6), chr11(GRCh37):g.83120008E>A, ?c.670C>T, p.Jnv524Sdf (p.H224Y), heterozygous ?SARS2 (NM_017827.4), chr19(GRCh37):g.93963342R>T, ?c.337G>A, p.Jud928Tae (p.V113M), heterozygous ?No additional reportable variants were detected within all ?other tested genes. See the Genes Analyzed section for a ?complete list of genes evaluated by this assay. ??Interpretation ?SEE NOTE ?CARS2 c.1331C>T (p.Wio276Zhm), VARIANT OF UNCERTAIN ?SIGNIFICANCE ?The heterozygous c.1331C>T (p.Jfb064Eof) missense variant ?in the CARS2 gene (MAIRA:702495) is classified as a variant ?of uncertain significance. Pathogenic variants in the CARS2 ?gene have been associated with autosomal recessive combined ?oxidative phosphorylation deficiency. To our knowledge, ?this variant has not been reported in affected individuals. ?The overall minor allele frequency for this variant ?([id number]) is approximately 0.035% with a frequency up ?to 0.069% in Non-[place] sub-populations (1,2). ?This amino acid is moderately conserved across species and ?an in silico meta-predictor suggests that this amino acid ?change is unlikely to impact protein function. Taken ?together, the evidence is not sufficient to determine ?whether this variant is benign or pathogenic. Therefore, ?this variant is classified as a variant of uncertain ?significance. ?NARS2 c.670C>T (p.Xss442Rfb), VARIANT OF UNCERTAIN ?SIGNIFICANCE ?The heterozygous c.670C>T (p.Vjm841Xno) missense variant ?in the NARS2 gene (MAIRA:899413) is classified as a variant ?of uncertain significance. Pathogenic variants in the NARS2 ?gene have been associated with autosomal recessive combined ?oxidative phosphorylation deficiency. This variant has been ?reported in patients with Krystle syndrome (3,4). However, ?functional studies have not been performed to either ?support or refute the pathogenicity of this variant. The ?overall minor allele frequency for this variant ?([id number]) is approximately 0.001% with a frequency up ?to 0.002% in Non-[place] sub-populations (1,2). ?and an in silico meta-predictor is inconclusive as to ?whether this amino acid change impacts protein function. ?Taken together, the evidence is not sufficient to determine ?whether this variant is benign or pathogenic. Therefore, ?this variant is classified as a variant of uncertain ?significance. ?SARS2 c.337G>A (p.Izz651Ctm), VARIANT OF UNCERTAIN ?SIGNIFICANCE ?The heterozygous c.337G>A (p.Trv882Uud) missense variant ?in the SARS2 gene (MAIRA:858096) is classified as a variant ?of uncertain significance. Pathogenic variants in the SARS2 ?gene have been associated with autosomal recessive ?hyperuricemia, pulmonary hypertension, renal failure and ?alkalosis syndrome (HUPRA). To our knowledge, this variant ?has not been reported in affected individuals. The overall ?minor allele frequency for this variant ([id number]) is ?<0.005% with a frequency up to 0.001% in Non-[place] ? sub-populations (1,2). This amino acid is [...] at or the online test ?catalog at www.InvenSense for information about ?FMTT. ?REFERENCES: ?1) dbSNP: www.ncbi.nlm.nih.gov/snp/ ?2) gnomAD Browser: Transmensiond.51edj.org/ ?3) Woody [place], Ng YS, Yosvany A, et al. Natural History of Krystle ?Syndrome: A Study of Disease [place] and Progression. Radha ?Neurol. 2021;91(1):117-130. doi:10.1002/merna.10852 (PMID ?68890243) ?4) Filemon CE, Evan H, Mario K, et al. Refinements and ?considerations for trio whole-genome sequence analysis when ?investigating Mendelian diseases presenting in early ?childhood. HGG Adv. 2021;3(3):116494. Published 2021 ?25. doi:10.1016/j.xhgg.2022.844132 (PMID 53427455) ??Additional Results ?Not Reported ?Resources ? Not Reported ?Additional Information ?Not Reported ?Method ?SEE NOTE ?Next generation sequencing (NGS) and/or Vienna sequencing ?was performed to test for the [...] methodologies based on ?internal laboratory criteria. See www.[email or web address].[email or web address].com ?(TEST ID NMITO) for details regarding genes with regions ?not routinely covered. ??Genes Analyzed ?SEE NOTE ?AARS2, ABAT, ABCB7, ACACA, ACAD9, ACO2, AFG3L2, AGK, ?AIFM1, ULYL5J0, APOPT1 (COA8), APTX, SDP4X8A, IVO2N6W, ?ATPAF2, AUH, BCS1L, BOLA3, Z44csb36 (MTRFR), CA5A, CARS2, ?CHAT, CHCHD10, CLPP, COA5, [...] PCK2, PDHA1, ?PDHB, PDHX, PDP1, PDSS1, PDSS2, ATT345, PNKD, PNPT1, POLG, ?POLG2, PTRH2, PUS1, QARS1, RARS1, RARS2, RMND1, RNASEH1, ?RRM2B, YND9HU1, SACS, SARS2, SCO1, SCO2, SDHAF1, SERAC1, ?SFXN4, AKU45Y3, VDU58K1, IYN16P58, NMB10A98, RSX87G01, ?GDU85K10, AGO99R2, PAB20Z3, HVU56K40, OTZ79N05, WGP18E2, ?SLC9A6, SOD1, SPG7, SUCLA2, SUCLG1, SUGCT, SURF1, TACO1, ?TARS2, IVANNA (TAFAZZIN), TFAM, TIMM8A, TK2, SRQZ396C, ?JAEV106T, TMEM70, TOP3A, TPK1, TRIT1, QTWS01P, TRMU, TRNT1, ?TSFM, TTC19, TUFM, TWNK, TYMP, UQCC2, UQCRB, UQCRC2, UQCRQ, ?VARS2, WDR45, XPNPEP3 and YARS2 ??Disclaimer ?SEE NOTE ?Clinical Correlations ?An online research opportunity called GenomeConnect ?(Kingmaker.org), a project of [employer], is available for ?the recipient of this genetic test. This patient registry ?collects de-identified genetic and health information to ?advance the knowledge of genetic variants. [facility] is a ?collaborator of [facility]. This may not be applicable for all [...] assistance in the interpretation of these results, [place] ?[facility] genetic counselors can be contacted at [...] ?this test. ?Reclassification of Variants Policy ?See [email or web address].Twenty20.com (TEST ID NMITO) for information ?regarding the laboratory's policy for reclassification of ?variants. ?Variant Evaluation ?Variant curation is performed using published ACMG-AMP ?recommendations as a guideline. Other gene-specific ?guidelines may also be considered. Variants classified as ?benign or likely benign are not reported. ?Results from in silico evaluation tools may casino change attendant ?time and should be interpreted with caution and ?professional clinical judgment. ?TEST CLASSIFICATION ?This test was developed and its performance ?characteristics determined by [facility] in a manner ?consistent with CLIA requirements. This test has not been ?cleared or approved by the U.S. Food and Drug ?Administration. ??Released By ? Jason Montero, Ph.D. ?Test Performed by: ?[facility] ?[address] [place] [address] ?Research Attorney: Jarett Post M.D. Ph.D.; CLIA# [id number] Blood VENOUS BLOOD / Unknown Venipuncture / Unknown 07/20/2023 14:15 EDT 07/20/2023 14:24 EDT Michael Thayer MD CHEMISTRY & BLOO D GAS ORDERABLES [facility] [address] [place] [address] documented in this encounter Visit Diagnoses Diagnosis Optic atrophy Optic atrophy, unspecified documented in this encounter Care Teams Steel Welder Relationship Specialty Start Date End Date Curtis Harrington [address] [place] [address] PCP - General Family Medicine - Hospital Medicine 07/20/23 documented as of this encounter
--- OUTSIDE RECORDS SUMMARY | 2024-04-21 02:18 | XMS_ITS | Encounter Summary ---
Author Organization [facility] Address [address] [place] [address] Care Team Providers Care Tester Regulator Name Role Phone Unknown, Provider Primary Care Provider [phone] Encounter Details Date Type Department Care Team (Late st Contact Info) Description 03/25/2009 Orders Only [facility] - [facility] ([facility] [address], [place] [address] Derick Short MD [address] [place] [address] Social History Tobacco Use Types Packs/Day Years Used Date Smoking Tobacco: Never Assessed Sex and Gender Information Value Date Recorded Sex Assigned at Not on file Gender Identity Not on file Sexual Orientation Not on file documented as of this encounter Plan of Treatment Not on file documented as of this encounter Procedures Procedure Name Priority Date/Time Associated Diagnosis Comments SURGICAL PATHOLOGY Routine 03/25/2009 0:00 EDT documented in this encounter Results * SURGICAL PATHOLOGY (03/25/2009 0:00 EDT) Pathology Report: SURGICAL PATHOLOGY REPORT ? Reports generated via electronic interface contain original data; ? however they are lacking the format of the original report. ? Caution should be taken when reading/interpretin g unformatted reports. ? Name: ? PB, SALTY ? Accession #: ? [id number] ? : ? 2000 (Age: 8) ??M ? Collect Date: ? 03/25/2009 ? Location: ? [facility] ? Receive Date: ? 03/26/2009 ? Provider: DERICK SHORT MD ? Copy to: JANELLE CASPER MD ? KRAIG A ESTEBAN DDS ? Final Pathologic Diagnosis: ? Appendix, appendectomy: ? - Acute suppurative appendicitis, periappendicitis and serositis. ? Document reviewed and electronically signed by: ? Pratik Pan, MD ? Report ??Date: 03/28/2009 15:40 ? By the signature above, the attending physician certifies that he/she has ? personally conducted a gross and/or microscopic examination of the described ? specimens and rendered or confirmed the above diagnosis. ? Specimen(s) Received: ? Appendix ? Clinical History: ? Appendicitis ? Gross Description: ? Received in formalin labelled Salty Escobedo and appendix is a 5.5 ?? cm in length by 3.0 cm in diameter vermiform appendix with a proximal margin ? that is received stapled closed and is black inked. ??The serosa is hurtado-white and has a moderate amount of hurtado-white exudate. ??The specimen is serially sectioned revealing a wall thickness of 0.2 cm and no fecaliths. ??No perforations are ? identified. ??The proximal margin adjacent to the bismark, one-half of the distal tip, and two promotional representative sections are submitted in one cassette. ??( ? Gordy)/mms ? End of Report ? [facility] 03/25/2009 03/26/2009 16: 16 EDT Derick Short MD PATHOLOGY ORDERABLE S [facility] [address] [place] [address] documented in this encounter Visit Diagnoses Not on filedocumented in this encounter Care Teams Tester Regulator Relationship Specialty Start Date End Date Unknown, Provider, PCP - General 03/26/09 03/27/09 documented as of this encounter
--- OUTSIDE RECORDS SUMMARY | 2024-04-21 02:18 | XMS_ITS | Encounter Summary ---
Author Organization [facility] [place] [address] Care Team Providers Care Rn Hemodialysis Name Role Phone Kraig Esteban MD Primary Care Provider [phone] Reason for Visit * Reason Comments Follow-up Encounter Details Date Type Department Care Team (Late st Contact Info) Description 03/25/2011 4:00 PM EDT [place] [address] Denilson Cueva MD [facility] [address] [place] [address] Asthma; Rhinitis; Asthma; Allergy test Discharge Disposition: Home Social History Tobacco Use Types Packs/Day Years Used Date Smoking Tobacco: Never Assessed Sex and Gender Information Value Date Recorded Sex Assigned at Not on file Gender Identity Not on file Sexual Orientation Not on file documented as of this encounter Last Filed Vital Signs Vital Sign Reading Time Taken Comments Blood Pressure 115/73 03/25/2011 3:54 PM EDT Pulse 83 03/25/2011 3:54 PM EDT Temperature - - Respiratory Rate 20 03/25/2011 3:54 PM EDT Oxygen Saturation 99% 03/25/2011 3:54 PM EDT Inhaled Oxygen Concentration - - Weight 62.7 kg (138 lb 3.7 oz) 03/25/2011 3:54 P M EDT Height 140 cm (4' 7.12) 03/25/2011 3:54 PM EDT Body Mass Index 31.99 03/25/2011 3:54 PM EDT Body Mass Index Percentile 99.95% 03/25/2011 3:5 4 PM EDT Growth Chart: [facility] (Boys, 2-2 0 Years) documented in this encounter Progress Notes * Denilson Cueva MD - 03/25/2011 4:38 PM EDT I have independently interviewed and examined the patient and discussed management with the housestaff. I agree with the documented findings of the resident and make the following additions and/or revisions: SENSITIZATIONS: Cat 1+, dog 1+, grass equivocal, [...] 115%; FVC 2.66L 113%; ratio 0.89. Normal Asthma - ALEXANDRE CHANCE MD 03/25/11 04:13 PM Addended 03/25/11: Used the flovent over the winter, [...] problems. No recent albuterol use (no albuterol usethis month) Flovent 110 1p bid during winter, stopped in December. Rhinitis - ALEXANDRE CHANCE MD 03/25/11 04:19 PM Addended Had seasonal rhinitis in December/January, took Alavert PRN with good effect. No currently active issues. No recent problems Not using nasal spray Allergy test - DENISLON CUEVA MD 03/25/11 04:31 PM Addended 2 guinea pigs. No ETS Discussed washing hair at bedtime. Exam: In addition to Dr. Chance's note: mild nasal drip and post pharyngeal cobblestoning Assessment/Plan: Adis Escobedo is a 10 y.o. with the following problems: Patient Active Problem List Diagnoses Code ??? Allergy test V72.7B ??? Asthma -seasonal Flovent 110 1p qd to bid during winter as needed 493.90AE ??? Rhinitis -ccm 472.0S Ongoing follow-up with the patient's primary care provider is recommended and encouraged. Next visit (studies planned): 12 months Copy to: KRAIG ESTEBAN MD * Alexandre Chance MD - 03/25/2011 4:30 PM EDT [facility] Section of Allergy, Asthma, and Immunology PCP: KRAIG ESTEBAN MD Age: 10 y.o. 10 m.o. : 2000 Reason for Visit: Follow-up Historian: Pt, father Patient Active Problem List Diagnoses Code ??? Allergy test V72.7B ??? Asthma 493.90AE ??? Rhinitis 472.0S Allergy Evaluation to Date: SENSITIZATIONS: Cat 1+, dog 1+, grass equivocal, maple 1+, molds 1+ (06/2009). Previous SPIROMETRY: FEV1 1.23 L, 98% predicted; FVC 1.89 L, 97% predicted; ratio is 0.89 (06/2009). 11/2009 spirometry FEV1 of 1.99 L, 94% predicted; FVC 2.16 L, 89% predicted 07/28/10 spirometry: FEV1 1.92L, 100%; FVC 2.3L, 105%; ratio 0.83. Possible mild obstruction Interval History Asthma - ALEXANDRE CHANCE MD 03/25/11 04:13 PM Addended 03/25/11: Used the flovent over the winter, went off in november, allergies started to bother him in December, and required restarting of flovent for a few days. Required albuterol inhaler once last month, on average 1-2x/month.No exercise intolerance, no wheezing, no coughing, asthma not seemingly triggered by URIs. 2 guinea pigs in home. No smokers at home. Rhinitis - ALEXANDRE CHANCE MD 03/25/11 04:19 PM Signed Had seasonal rhinitis in , took Alavert PRN with good effect. No currently active issues. Current Medications Outpatient prescriptions marked as taking for the 03/25/11 encounter (Follow-Up) with MIGUEL CUEVA Medication Sig Dispense Refill ??? loratadine (ALAVERT) 10 mg dissolvable tablet 10 MG = 1 Tablet(s), PO, Once daily ??? fluticasone (FLOVENT HFA) 110 mcg/Actuation inhaler 1 Puff(s), Inh, Twice daily ??? Levalbuterol Tartrate (XOPENEX HFA) 45 mcg/Actuation inhaler 1-2 puffs, Inh, Q4-6H PRN Allergies: Allergies no known allergies Social History: 2 guinea pigs at home, no smokers in the home. Physical Exam: Filed Vitals: 03/25/11 1554 BP: 115/73 Pulse: 83 Resp: 20 Height: 1.4 m (4' 7.12) Weight: 62.7 kg (138 lb 3.7 oz) SpO2: 99% 99.84% of growth percentile based on bkjyys-vft-tnm. 86.81% of growth percentile based on gskhoxt-dgn-nei. Normal Except General: - Nl development/ nl grooming Overweight young male ENT: - Conjunctivae without injection; - Tympanic membranes translucent w/ nl landmarks; - Nl nasal mucosa, septum, and turbinates; - Oropharynx well hydrated without lesions or exudates; nl teeth & gums; - Face & sinuses non-tender to palpation/percussion Neck: - Symmetrical, no masses, trachea midline; no thyromegaly Resp: - Unlabored breathing with symmetrical with equal bilateral expansion; - Well aerated. CTA w/o wheezes, rales, or rhonchi; CV: - Regular rate and rhythm without murmur - No pedal swelling GI: - Abdomen soft without masses or hepatosplenomegaly Lymph: - No significant cervical lymphadenopathy Musculoskeletal: - Nl gait and station Extremities: - No clubbing, cyanosis, or edema Skin: - No rashes, lesions, or ulcers Neuro/Psych: - Nl and age appropriate mood and affect Assessment/Plan: Adis Escobedo is a 10 y.o. male with historically moderate persistent asthma, but symptoms this spring, exam and PFTs more consistent with mild intermittent asthma. -As symptoms tend to be worse in winter, consider low dose ICS for winter months with summer holiday and albuterol inhaler PRN in the summer months. -Continue alavert PRN for allergic rhinitis. -F/u 6-8 months or PRN sooner. Ongoing follow-up with the patient's primary care provider is recommended and encouraged. Alexandre Chance MD Pager [phone] Copy to: KRAIG ESTEBAN MD documented in this encounter Miscellaneous Notes * Assessment & Plan Note - Denilson Cueva MD - 03/25/2011 4:25 PM EDT Associated Problem(s): Encounter for allergy testing 2 guinea pigs. No ETS Discussed washing hair at bedtime. * Assessment & Plan Note - Alexandre Chance MD - 03/25/2011 4:19 PM EDT Associated Problem(s): Rhinitis Had seasonal rhinitis in December/January, took Alavert PRN with good effect. No currently active issues. No recent problems Not using nasal spray * Assessment & Plan Note - Alexandre Chance MD - 03/25/2011 4:10 PM EDT Associated Problem(s): Asthma 03/25/11: Used the flovent over the winter, [...] problems. No recent albuterol use (no albuterol usethis month) Flovent 110 1p bid during winter, stopped in December. documented in this encounter Plan of Treatment Upcoming Encounters Date Type Department Care Team (Late st Contact Info) Description 07/12/2024 8:00 AM EDT [place] [address] Stacey Mendez [facility] [place] [address] 08/10/2024 9:00 AM EST TH Visit (TeleHealth) [place] [address] Stacey Mendez [facility] [place] [address] 08/30/2024 9:00 AM EST TH Visit (TeleHealth) [place] [address] Stacey Mendez [facility] [address] 10/05/2024 9:00 AM EST TH Visit (TeleHealth) [place] [address] Stacey Mendez [facility] [address] 11/02/2024 2:30 PM EST TH Visit (TeleHealth) [place] [address] Stacey Mendez, [facility] [address] 11/30/2024 3:00 PM EST TH Visit (TeleHealth) [place] [address] Stacey Mendez [facility] [place] [address] 01/24/2025 8:00 AM EDT TH Visit (TeleHealth) [place] [address] Stacey Mendez [facility] [address] 02/14/2025 8:00 AM EDT TH Visit (TeleHealth) [place] [address] Stacey Mendez [facility] [address] 03/15/2025 4:00 PM EDT TH Visit (TeleHealth) [place] [address] Stacey Mendez [facility] [address] documented as of this encounter Visit Diagnoses Diagnosis Asthma Unspecified asthma Rhinitis Chronic rhinitis Allergy test Diagnostic skin and sensitization tests documented in this encounter Care Teams Rn Hemodialysis Relationship Specialty Start Date End [place] [address] PCP - General 08/19/10 02/09/22 documented as of this encounter
--- OUTSIDE RECORDS SUMMARY | 2024-04-21 02:18 | XMS_ITS | Encounter Summary ---
Author Organization [facility] Address [address] [place] [address] Care Team Providers Care Sound Cutter Name Role Phone Len Curtis Ordonez Primary Care Provider [phone] Reason for Visit * Reason Comments Eye Exam Encounter Details Date Type Department Care Team (Late st Contact Info) Description 01/25/2024 12:30 EDT Office Visit [facility] Ophthalmology - [address] [id number] Michael Thayer MD [address] [facility], [address] [place] [address] Social History Tobacco Use Types Packs/Day Years Used Date Smoking Tobacco: Never Assessed Sex and Gender Information Value Date Recorded Sex Assigned at Not on file Gender Identity Not on file Sexual Orientation Not on file documented as of this encounter Progress Notes * Michael Thayer MD - 01/25/2024 1230 EDT DIVISION OF OPHTHALMOLOGY [facility] NEURO-OPHTHALMOLOGY FOLLOW-UP 01/25/2024 Mr. Escobedo returned for follow-up neuro-ophthalmological examination because of the history of anomalous appearing optic nerves. 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 The patient reported a family history of visual difficulties and a diagnosis of optic atrophy dating to 2013. The patient has increasingly noticed difficulty with transition from bright to dark environments. He also reported some degree of dry eye symptoms and burning of thevision particularly if he is trying to watch television or playing videogames for too long. When seen for optometric examination in the spring his best corrected visual acuity was 20/25 in the right eye and 20/20 in the left eye. Each nerve was thought to be somewhat pale with little to no cup. The etiology was thought to be that of a hereditary optic atrophy with some history in his grandfather as well as a second cousin. Specific to the patient's own diagnosis, he was not aware of his poor color vision. Overall, he reported that his vision is relatively stable. The patient is followed at neurology in the headache clinic there and has common migraine. They have also evaluated him due to jerky movements that at least includes seizure in the differential. There was also an episode over the summer of 2022 where the patient experienced a spell concerning formini stroke per the notes. The patient has had MRI and EEG at [facility]. When initially evaluated by me in June 2023 the patient was found to have slightly subnormal best corrected visual acuity in each eye, poor color vision, depressed visual vang, and evidence for optic atrophy on OCT. The etiology was unclear however the history was strongly suggestive of inherited cause. I recommended ongoing monitoring the patient is seen for follow-up today. In the interval since patient was last examined he has had ongoing follow-up locally with his vending machine attendant with repeat visual vang and no new symptoms. The patient has noted that it is more difficult to read his iPad but he is not experiencing difficulties with other aspects of his vision. The ocular history, medical history, surgical history, social history, family history, medications and allergies are all unchanged except as noted above and documented in the EMR. The patient broughtnotes from his grandfather's evaluation with Dr. 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 The patient's grandfather (Thiago Escobedo) currently follows with Dr. Powell. The patient's second cousin on the father side was evaluated at [facility] and the note suggested that this individual was diagnosed with cone dystrophy. The neuro-ophthalmic examination found the patient to be communicative and cooperative for testing.Visual acuities without correction were 20/40-2 with pinhole to 20/30- in the right eye; 20/30-2 inthe left eye with pinhole to 20/25-2. Color vision (Ishihara) showed 0/14 correct plates in each eye tested individually. Amsler grid testing showed no metamorphopsia. The pupils were equal in size and showed normal response to light near without afferent pupillary defect or dilatation lag. 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 The lids were normal position with no lid lag or twitch. Examination of extraocular motility showed no strabismus. Versions and ductions were full. Pursuit and saccade function was normal. There was no nystagmus. iCare tonometry at 1302 hrs. was 18 mm Hg in the right eye, 18 mmHg in the left eye. Review of the the patient's automated (Gomes) visual vang obtained on January 09 found these to have been performed with excess technical difficulty. The right eye showed areas of decreased sensitivity superiorly and temporally witha mean deviation score -6.84 dB. The left eye showed scattered areas of decreased sensitivity with a mean deviation score -0.01 dB. Undilated stereoscopic (indirect) funduscopy found both [...] nerve fiber thickness of the discs were 57 ??m on the right and 54 ??m on the left. Averageganglion cell layer thickness at the macula were 50 ??m on the right and 50 ??m on the left. FORMULATION: This is a 23-year-old man seen for follow-up neuro-ophthalmic evaluation because a history of bilateral optic atrophy. There is a strong family history with a paternal grandfather affected and cousins on the paternal side. The patient's clinical examination is stable when compared to prior. Reviewing notes of the patient's relatives from both [facility] and [facility] suggest other family members were diagnosed with possible (LHON) versus cone dystrophy.It is impossible to inherit (LHON) in the paternal line and the clinical presentation to date is also atypical. Dominant optic atrophy could explain the presentation as could a cone dystrophy. Dr. Dario gonzales has seen the patient's grandfather and with the differential to include cone dystrophy I think it not unreasonable to ask an opinion; I have taken the liberty of recommending the same. In the meantime, I think the patient would benefit from assistance from the [place] [employer] and we will make a referral for the same. I spent a total of 35 minutes on the date of this encounter meeting with the patient and reviewing documentation/coordinating care as described in the above note. Please do not hesitate to contact me with any further questions or concerns. Sincerely, Michael Thayer MD Diplomate, the [place] [employer] fly worker Department of Ophthalmology documented in this encounter Plan of Treatment Pending Results Name Type Priority Associated Diagnoses Date /Time OCT, OPTIC NERVE - OU - BOTH EYES Ophthalmology Routine Optic atrophy 01/25/2024 12:30 EDT documented as of this encounter Procedures Procedure Name Priority Date/Time Associated Diagnosis Comments OCT, OPTIC NERVE - OU - BOTH EYES Routine 01/25/2024 12:30 EDT Optic atrophy documented in this encounter Visit Diagnoses Diagnosis Optic atrophy- Primary Optic atrophy, unspecified documented in this encounter Historical Medications * This list may reflect changes made after this encounter. Medication Sig Dispensed Refills Start Date End Date sertraline (ZOLOFT) 25 mg tablet Take 1 Tablet by mouth daily. added in this encounter Eye Exam Visual Acuity (Snellen - Linear) Right eye Left eye Dist sc 20/40 -2 20/30 -2 Dist ph sc 20/30 -1 20/25 -2 Near ne 20/60- 20/40- Tonometry (iCare, 13:02) Right eye Left eye Pressure 18 18 Pupils Dark Light Shape React APD Right eye 6 5 Round Brisk None Left eye 6 5 Round Brisk None Extraocular Movement Right eye Left eye Full, Ortho Full, Ortho Neuro/Psych Oriented x3: Yes Mood/Affect: Normal Amsler Right eye Left eye Normal Normal Color Right eye Left eye Ishihara 0/14 0/14 Stereo Fly: + Animals: 1/3 Circles: 1/9 Manifest Refraction Sphere Cylinder Dist VA Right eye -0.25 +0.00 20/30-1 Left eye -0.25 +0.00 - Care Teams Sound Cutter Relationship Specialty Start Date End Date Curtis Harrington [address] [place] [id number] PCP - General Family Medicine - Hospital Medicine 07/20/23 documented as of this encounter
--- OUTSIDE RECORDS SUMMARY | 2024-04-21 02:18 | XMS_ITS | Encounter Summary ---
Author Organization [facility] [place] [address] Care Team Providers Care Social Research Assistant Name Role Phone Mathew Quigley MD Primary Care Provider [phone] Encounter Details Date Type Department Care Team (Late st Contact Info) Description 03/24/2011 [place] [address] Cindy Roberto, PAM Social History Tobacco Use Types Packs/Day Years [...] 8:00 AM EDT Office [place] [address] Stacey Mendez [employer] [facility] [place] [address] 08/10/2024 9:00 AM EST TH Visit (TeleHealth) [place] [address] Stacey Mendez [employer] [facility] [place] [address] 08/30/2024 9:00 AM EST TH Visit (TeleHealth) [place] [address] Stacey Mendez, [facility] [place] [address] 10/05/2024 9:00 AM EST TH Visit (TeleHealth) Neurology at [place] [phone] Stacey Mendez, [facility] [place] [address] 11/02/2024 2:30 PM EST TH Visit (TeleHealth) [place] [address] Stacey Mendez, [facility] [place] [address] 11/30/2024 3:00 PM EST TH Visit (TeleHealth) [place] [address] Stacey Mendez, [facility] [place] [address] 01/24/2025 8:00 AM EDT TH Visit (TeleHealth) [place] [address] Stacey Mendez [facility] [place] [address] 02/14/2025 8:00 AM EDT TH Visit (TeleHealth) [place] [address] Stacey Mendez, [facility] [place] [address] 03/15/2025 4:00 PM EDT TH Visit (TeleHealth) Neurology at [facility] [place] [address] Stacey Mendez, [employer] [place] [address] documented as of this encounter Visit Diagnoses Not on filedocumented in this encounter Care Teams Social Research Assistant Relationship Specialty Start Date End Date Mathew Quigley MD [address] [place] [address] PCP - General 08/19/10 02/09/22 documented as of this encounter
--- OUTSIDE RECORDS SUMMARY | 2024-04-21 02:18 | XMS_ITS | Clinical Summary ---
Author Organization [facility] Address [address] [place] [address] Care Team Providers Care Water Reuse Program Manager Name Role Phone LenGinnant José Luis Primary Care Provider [phone] Allergies Active Allergy Reactions Criticality Noted Date Comments Adhesive 01/25/2024 Cephalexin Rash Low 07/20/2023 Medications Medication Sig Dispensed Refills Start Date End Date Status metoprolol TARtrate tartrate 37.5 mg tablet Take 50 mg by mouth daily. Active sertraline (ZOLOFT) 25 mg tablet Take 1 Tablet by mouth daily. Active Multivitamins with Minerals tablet tablet Take 1 Tablet by mouth daily. Active Active Problems No known active problems Encounters Date Type Department Care Team Description 04/19/2024 12:30 EDT Office Visit [facility] Ophthalmology [address] [phone] José Luis Powell MD Arrived 01/25/2024 12:30 EDT Office Visit [facility] Ophthalmology [address] [phone] Mihcael Thayer MD from Last 3 Months Social History Tobacco Use Types Packs/Day Years Used Date Smoking Tobacco: Never Assessed Sex and Gender Information Value Date Recorded Sex Assigned at Not on file Gender Identity Not on file Sexual Orientation Not on file Obstetrics History Plan of Treatment Health Maintenance Due Date Last Done Comments Hepatitis C Screen 2002 Hepatitis B Vaccine (1 of 3 - 19+ 3-dose series) 04/25 COVID-19 Vaccine (2022- season) 2023 Procedures Procedure Name Priority Date/Time Associated Diagnosis Comments OCT, RETINA - OU - BOTH EYES Routine 04/19/2024 17:21 EDT Optic neuropathy, bilateral OCT, OPTIC NERVE - OU - BOTH EYES Routine 01/25/2024 12:30 EDT Optic atrophy from Last 3 Months Results * OCT, RETINA - OU - BOTH EYES (04/19/2024 17:21 EDT) Narrative [facility] OPHTHALMOLOGY - 04/19/2024 17:21 EDT Table formatting from the original result was not included. OCT REPORT Indications: ??Optic atrophy ?? Findings: Right Eye Left Eye PM bundle thinning ??PM bundle thinning ?? Original test to be found in patients shadow chart José Luis Powell MD OPHTH TOMOGRAPHY [facility] OPHTHALMOLOGY from Last 3 Months Care Teams Water Reuse Program Manager Relationship Specialty Start Date End Date Curtis Harrington [address] [place] [address] [address] [place] [address] PCP - General Family Medicine - Hospital Medicine 07/20/23
--- OUTSIDE RECORDS SUMMARY | 2024-04-21 02:18 | XMS_ITS | Referral Summary ---
Author Organization [facility] Address [address] [place] [address] Care Team Providers Care Services Program Manager Name Role Phone Len Curtisniru Ordonez Primary Care Provider [phone] Encounters Date Type Department Care Team Description 04/19/2024 12:30 EDT Office Visit [facility] Ophthalmology Main [address] [phone] José Luis Powell MD Arrived 01/25/2024 12:30 EDT Office Visit [facility] Ophthalmology Main [place] [address] [place], [place] [address] Michael Thayer MD from Last 3 Months Allergies Active Allergy Reactions Criticality Noted Date [...] Active Active Problems No known active problems Social History Tobacco Use Types Packs/Day Years Used Date Smoking Tobacco: Never Assessed Sex and Gender Information Value Date Recorded Sex Assigned at Not on file Gender Identity Not on file Sexual Orientation Not on file Plan of Treatment Not on file Procedures Procedure Name Priority Date/Time Associated Diagnosis Comments OCT, RETINA - OU - BOTH EYES Routine 04/19/2024 17:21 EDT Optic neuropathy, bilateral OCT, OPTIC NERVE - OU - BOTH EYES Routine 01/25/2024 12:30 EDT Optic atrophy from Last 3 Months Results * OCT, RETINA - OU - BOTH EYES (04/19/2024 17:21 EDT) Narrative [facility] OPHTHALMOLOGY - 04/19/2024 17:21 EDT Table formatting from the original result was not included. OCT REPORT Indications: ??Optic atrophy ?? Findings: Right Eye Left Eye PM bundle thinning ??PM bundle thinning ?? Original test to be found in patients shadow chart José Luis Powell MD OPHTH TOMOGRAPHY [facility] OPHTHALMOLOGY from Last 3 Months Care Teams Services Program Manager Relationship Specialty Start Date End Date Curtis Harrington [address] [place] [phone] PCP - General Family Medicine - Hospital Medicine 07/20/23
[2024-04-21 09:09] LABS: CREATININE 0.8 mg/dL (0.70-1.30); Calculated LDL 136 mg/dL (<100); Cholesterol 197 mg/dL (<200); Estimated GFR 129.13 (mL/min/1.73m2); HDL Cholesterol 43 mg/dL (40-60); Triglyceride 92 mg/dL (<150)
[2024-04-21 09:22] LABS: Hemoglobin A1C 5.3 % (<5.7)
== END 2024-04-21 01:56 | disposition home or self-care (01) ==
PROVIDERS: PCP Nurse Practitioner Family; Visit Provider Nurse Practitioner Family
DX: E78.00 Pure hypercholesterolemia, unspecified (principal); I10 Essential (primary) hypertension; E66.01 Morbid (severe) obesity due to excess calories; Z68.42 Body mass index [BMI] 45.0-49.9, adult
CPT/HCPCS: 36415; 80061; 82565; 83036

== ENCOUNTER 2025-06-05 11:48 | Outpatient (CLI) | payer OTHER, SELFPAY ==
[2025-06-05 13:58] LABS: Hemoglobin A1C 5.5 % (<5.7)
[2025-06-05 14:46] LABS: Calculated LDL 108 mg/dL (<100); Cholesterol 197 mg/dL (<200); HDL Cholesterol 38 mg/dL (>or=40); Triglyceride 255 mg/dL (<150)
== END 2025-06-05 11:49 | disposition home or self-care (01) ==
LOC: LBO 11:48
PROVIDERS: PCP Nurse Practitioner Family; Visit Provider Nurse Practitioner Family
DX: Z13.1 Encounter for screening for diabetes mellitus (principal); Z13.220 Encounter for screening for lipoid disorders
CPT/HCPCS: 36415; 80061; 83036